=== PATIENT | female | born 1985 | race Caucasian/White ===

== ENCOUNTER 2017-12-22 13:05 | Observation (INO) ==
[2017-12-22 14:06] LABS: Bilirubin,Urine Negative (Negative); Blood,Urine Negative (Negative); Clarity,Urine Clear (Clear); Color,Urine Yellow (Yellow); Glucose,Urine (UA) Normal (Normal); Ketones,Urine Negative (Negative); Leukocyte Esterase,Urine Negative (Negative); Nitrite,Urine Negative (Negative); Protein,Urine Negative (Neg-Trace); Specific Gravity,Urine 1.014 (1.010-1.025); Urobilinogen,Urine Normal (Normal)
[2017-12-22 14:11] LABS: Basophils # 0.1 K/mcL (0.0-0.2); Basophils % 0.4 %; Eosinophils # 0.1 K/mcL (0.0-0.6); Eosinophils % 0.5 %; Hematocrit 45.3 % (35.3-44.9); Hemoglobin 14.5 g/dL (11.5-15.4); Immature Granulocytes % 1.6 % (0-4); Lymphocytes # 2.5 K/mcL (0.6-4.6); Lymphocytes % 10.5 %; Mean Corpuscular Hemoglobin 29.8 pg (28.0-33.3); Mean Platelet Volume 9.2 fL (9.4-12.4); Monocytes # 1.3 K/mcL (0.0-1.3); Monocytes % 5.4 %; Neutrophils # 19.3 K/mcL (1.6-8.9); Platelet Count 417 K/mcL (140-400); Red Blood Count 4.87 M/mcL (3.82-4.97); Red Cell Distribution Width 15.7 % (11.5-14.5); Segmented Neutrophils % 81.6 %
[2017-12-22 14:18] LABS: Prothrombin Time 10.6 Seconds (9.4-12.1)
[2017-12-22 14:21] LABS: Activated Partial Thrombo Time 28.9 Seconds (26.0-36.0)
--- NOTE | 2017-12-22 14:25 | Emergency Department Note ---
Disposition Clinical Impression: Neurosensory deficit, Hemiparaplegic syndrome, Paresthesia and pain of both upper extremities Disposition: Admitted As Inpatient Condition: Fair Referrals: Emi Rajan CNP [Primary Care Provider] - Time of Disposition: 15:22 Neuro HPI - General Chief Complaint: ED Neuro Symptoms/Deficit Stated Complaint: "R leg numbness,tingling in fingers/face" Time Seen by Provider: 12/22/17 13:47 Source: patient Mode of arrival: wheelchair Limitations: no limitations Nursing Notes Reviewed: Yes Vital Signs Reviewed: Yes - History of Present Illness HPI Narrative: 32-year-old female history of [place]'s disease, mitral valve prolapse, patent foramen ovale, anxiety and depression, hypertension, symptomatic atrial tachycardia, who presents with an episode of right-sided weakness in her right lower extremity as well as her upper extremity. This occurred concurrently, patient had symptoms started yesterday in the morning when she was just sitting at home. She is unable to walk the right leg she had a CT scan done at [facility] was negative was discharged but was unable to ambulate since then. The patient is still not able to walk or lift or move the right leg, she feels no sensation pain or temperature to the right leg. The patient states that she has no neck pain no stiffness of her neck no recent trauma to her neck or back. She is no blurry vision or diplopia no slurred speech. She has no history of strokes is not anticoagulated. Patient denies any chest pain or abdominal pain. Patient states that she also has tingling in her bilateral upper extremity's in her face. Just feels subjective tingling and paresthesias she is noticing her parents his left lower extremity. And full motor strength for upper extremities bilaterally and her left leg. She did have a recent diarrheal illness and took some antibiotics for about a month ago where she was having diarrhea and nausea vomiting no recent travel or sick exposures no recent bites by bugs. No recent tick bite Onset of Symptoms Date: 12/21/17 Onset of Symptoms Time: 10:00 Symptom Onset Unknown: Yes Timing confirmed by: spouse Location: speech History of same: No Severity: moderate Quality: weakness, numbness, tingling Symptoms Improving: Yes Improves with: none Worsens with: none On Anticoagulants: No Associated symptoms: Reports: weakness. Denies: confusion, chest pain, cough, diaphoresis, fever/chills, headaches, loss of appetite, malaise, nausea/vomiting Treatments Prior to Arrival: none - Related Data Home Medications: Home Medications Medication Instructions Recorded Confirmed Gabapentin [Neurontin] 800 mg PO TID 12/22/17 12/22/17 Ibuprofen [Ibuprofen] 800 mg PO TID 12/22/17 12/22/17 Metoprolol Succinate [Toprol Xl] 25 mg PO DAILY 12/22/17 12/22/17 Minocycline [Minocin] 50 mg PO DAILY 12/22/17 12/22/17 Omeprazole [PriLOSEC] 20 mg PO DAILY 12/22/17 12/22/17 Topiramate [Topamax] 25 mg PO TID 12/22/17 12/22/17 Triamterene/HCTZ 37.5/25mg 1 each PO DAILY 12/22/17 12/22/17 [Dyazide] Zolpidem [Ambien] 10 mg PO HS 12/22/17 12/22/17 clonazePAM [Klonopin] 1 mg PO TID 12/22/17 12/22/17 predniSONE [PredniSONE] 25 mg PO DAILY 12/22/17 12/22/17 raNITIdine HCl [Ranitidine HCl] 300 mg PO DAILY 12/22/17 12/22/17 Allergies/Adverse Reactions: Allergies Allergy/AdvReac Type Severity Reaction Status Date / Time dextromethorphan Allergy Seizure Verified 12/22/17 16:01 [From Capmist DM] guaifenesin [From Capmist DM] Allergy Seizure Verified 12/22/17 16:01 latex Allergy Rash Verified 12/22/17 16:01 morphine Allergy Hives Verified 12/22/17 16:01 pseudoephedrine Allergy Seizure Verified 12/22/17 16:01 [From Capmist DM] magnesium sulfate Allergy Palpitation Uncoded 12/22/17 16:01 s All systems ED: reviewed and negative except as stated. Review of Systems: As Per HPI Constitutional: Reports: as per HPI, weakness. Denies: fever, chills Eyes: Denies: eye pain ENT ED: Denies: ear pain Cardiovascular: Denies: chest pain, palpitations Respiratory: Denies: cough, dyspnea Gastrointestinal: Denies: abdominal pain Genitourinary: Denies: urgency, dysuria Musculoskeletal: Denies: back pain, neck pain, joint swelling Integumentary: Denies: rash Neurological: Reports: as per HPI, weakness, paresthesias. Denies: headache, abnormal gait Psychiatric: Denies: anxiety, depression, suicidal thoughts Endocrine: Denies: fatigue Past Medical History - Past Medical History Attestation: Yes The following information was validated with the patient. Source: patient Medical history: Reports: cancer, seizures Psychiatric history: Reports: depression - Social History Smoking Status: Current every day smoker Alcohol use: Reports: none Drug use: Reports: none Physical Exam Constitutional: NAD, vital signs reviewed and wnl Eyes: PERRLA, sclera anicteric ENT & Mouth: MMM Neck: normal inspection, neck is supple Resp: CTA bilaterally, no resp distress CV: RRR, no m/g/r GI: normal inspection, soft, no guarding or rigidity Neuro: A&O3, CNII-XII grossly intact, 0 out of 5 muscle strength of the right lower extremity, decreased sensation in the right lower extremity from the ankle to the thigh. Patient with 5 out of 5 muscle strength in the left lower extremity bilateral upper extremities. Patient subjective sensory deficit "feels numb" to the left and right face left and right arms bilaterally patient with +2 out of 4 DTRs bilateral lower extremity patella no clonus at the ankle. Skin: on limited exam, skin intact with no rashes or lesions - General Limitations: no limitations General appearance: alert, in no apparent distress Course Course Narrative: 32-year-old female with mixed neurologic complaints that are somewhat myotic spine by peripheral or central distribution, right sided marianne-paraplegia the patient will get a basic lab work and CT scan of the low back but no tenderness , no indication for lumbar puncture at this time as she is afebrile and normotensive she has chronic steroid use basic lab work CBC BMP x-ray CT of the back ordered. The patient also has onset greater than 24 hours ago and recent negative CT scan so indication for head MRI not a CT scan repeated and the patient is not in the candidate for TPA if this was possibly stroke. - Reevaluation(s) Reevaluation #1: Admitted to Dr Burns - Consultations Consultation #1: I spoke with Dr. Patel the neurologist and one over the labs and imaging at this time the patient is seemed dynamically stable afebrile no acute distress with no neck stiffness or nuchal rigidity, the neurologist agrees with no indication for lumbar puncture at this time but thinks that the patient will need MRI imaging of the head CT and L-spine likely to evaluate for other etiologies he suspects a central etiology versus functional given that she is having a paraplegic to the right leg. Plan is for admission the hospitalist service Time: 15:32 Consultation #2: Neuro saw patient at bedside, recs UDS as well, and agrees with plan for admission and imaging MRI Head C/T/L Time: 16:55 Vital Signs Temperature 98.2 F 12/22/17 13:29 Pulse Rate 112 12/22/17 13:29 Respiratory Rate 14 12/22/17 13:29 Blood Pressure 118/86 12/22/17 13:29 O2 Sat by Pulse Oximetry 97 12/22/17 13:29 Temperature 98.2 F 12/22/17 13:55 Pulse Rate 112 12/22/17 13:55 Respiratory Rate 14 12/22/17 13:55 Blood Pressure 118/86 12/22/17 13:55 O2 Sat by Pulse Oximetry 97 12/22/17 13:55 Oxygen Delivery Oxygen Delivery Room Air Neuro Symptoms/Deficit - Differential Diagnosis Likely: cerebrovascular accident, transient cerebral ischemia, convulsions - Medical Records Medical records reviewed: Yes I reviewed the patient's medical records. - Lab Data Lab results reviewed: Yes I reviewed the patient's lab results. Result diagrams: 12/22/17 13:55 12/22/17 13:55 Lab Results 12/22/17 12/22/17 12/22/17 Range/Units 13:35 13:35 13:55 WBC 23.6 H (4.3-11.1) K/mcL RBC 4.87 (3.82-4.97) M/mcL Hgb 14.5 (11.5-15.4) g/dL Hct 45.3 H (35.3-44.9) % MCV 93.0 (83.0-100.0) fL MCH 29.8 (28.0-33.3) pg MCHC 32.0 (31.6-35.5) g/dL RDW 15.7 H (11.5-14.5) % Plt Count 417 H (140-400) K/mcL MPV 9.2 L (9.4-12.4) fL Immature Gran % 1.6 (0-4) % Seg Neutrophils % 81.6 % Lymphocytes % 10.5 % Monocytes % 5.4 % Eosinophils % 0.5 % Basophils % 0.4 % Neutrophils # 19.3 H (1.6-8.9) K/mcL Lymphocytes # 2.5 (0.6-4.6) K/mcL Monocytes # 1.3 (0.0-1.3) K/mcL Eosinophils # 0.1 (0.0-0.6) K/mcL Basophils # 0.1 (0.0-0.2) K/mcL PT (9.4-12.1) Seconds INR APTT (26.0-36.0) Seconds Sodium (136-145) mEq/L Potassium (3.5-5.1) mEq/L Chloride (98-107) mEq/L Carbon Dioxide (23-29) mEq/L BUN (6-20) mg/dL Creatinine (0.60-1.20) mg/dL Est GFR ( Amer) (> 60) Est GFR (Non-Af Amer) (> 60) BUN/Creatinine Ratio (6-26) Glucose (70-105) mg/dL Calculated Osmolality (280-300) Calcium (8.6-10.3) mg/dL Magnesium (1.6-2.6) mg/dL Troponin I (< 0.04) ng/mL TSH (0.340-5.600) mcIU/mL Urine Color Yellow (Yellow) Urine Clarity Clear (Clear) Urine pH 6.0 (5.0-8.0) pH Units Ur Specific [place] 1.014 (1.010-1.025) Urine Protein Negative (Neg-Trace) mg/dL Urine Glucose (UA) Normal (Normal) mg/dL Urine Ketones Negative (Negative) mg/dL Urine Blood Negative (Negative) Urine Nitrite Negative (Negative) Urine Bilirubin Negative (Negative) Urine Urobilinogen Normal (Normal) mg/dL Ur Leukocyte Esterase Negative (Negative) Ur Culture Indicated? NO (NO) Urine Test Negative (Negative) 12/22/17 12/22/17 12/22/17 Range/Units 13:55 13:55 13:55 WBC (4.3-11.1) K/mcL RBC (3.82-4.97) M/mcL Hgb (11.5-15.4) g/dL Hct (35.3-44.9) % MCV (83.0-100.0) fL MCH (28.0-33.3) pg MCHC (31.6-35.5) g/dL RDW (11.5-14.5) % Plt Count (140-400) K/mcL MPV (9.4-12.4) fL Immature Gran % (0-4) % Seg Neutrophils % % Lymphocytes % % Monocytes % % Eosinophils % % Basophils % % Neutrophils # (1.6-8.9) K/mcL Lymphocytes # (0.6-4.6) K/mcL Monocytes # (0.0-1.3) K/mcL Eosinophils # (0.0-0.6) K/mcL Basophils # (0.0-0.2) K/mcL PT 10.6 (9.4-12.1) Seconds INR 1.0 APTT 28.9 (26.0-36.0) Seconds Sodium 138 (136-145) mEq/L Potassium 3.3 L (3.5-5.1) mEq/L Chloride 107 (98-107) mEq/L Carbon Dioxide 20 L (23-29) mEq/L BUN 7 (6-20) mg/dL Creatinine 0.84 (0.60-1.20) mg/dL Est GFR ( Amer) > 60 (> 60) Est GFR (Non-Af Amer) > 60 (> 60) BUN/Creatinine Ratio 8 (6-26) Glucose 96 (70-105) mg/dL Calculated Osmolality 284 (280-300) Calcium 8.7 (8.6-10.3) mg/dL Magnesium 2.0 (1.6-2.6) mg/dL Troponin I < 0.03 (< 0.04) ng/mL TSH 1.118 (0.340-5.600) mcIU/mL Urine Color (Yellow) Urine Clarity (Clear) Urine pH (5.0-8.0) pH Units Ur Specific [place] (1.010-1.025) Urine Protein (Neg-Trace) mg/dL Urine Glucose (UA) (Normal) mg/dL Urine Ketones (Negative) mg/dL Urine Blood (Negative) Urine Nitrite (Negative) Urine Bilirubin (Negative) Urine Urobilinogen (Normal) mg/dL Ur Leukocyte Esterase (Negative) Ur Culture Indicated? (NO) Urine Test (Negative) - Radiology Data Radiology results reviewed: Yes I reviewed the patient's radiology results. Lumbar Spine CT 12/22/17 14:06 IMPRESSION: No acute fracture or subluxation. D/ / Lalo Camejo MD / Lalo Camejo MD Interpreting Provider: Lalo Camejo MD - EKG Data EKG attestation: Yes I reviewed and interpreted this EKG. EKG shows normal: sinus rhythm Rate: tachycardia Rhythm: NSR (100 beats for minute DC 157 QRS 93 QTc [address] segment elevations, left axis, inversions in lead 3 and aVR. left atrial enlargement) TPA Checklist - LKW: 3-4.5 hrs Add. Warnings/Precautions Patient/family understanding: The patient/family members have been counseled and understood the risk, benefit , and alternatives of treatment. Attestation Statement - Attestation Attestation: I, Reyes Maher DO, examined this patient [id number] and my medical decision-making was reviewed with Dr. Dagoberto Justin, Resident Physician. I agree with the documented findings, disposition and treatment plan as described except to the extent set forth below. Please see my progress notes for details.
[2017-12-22 14:30] LABS: BUN/Creatinine Ratio 8 (6-26); Blood Urea Nitrogen 7 mg/dL (6-20); Calcium 8.7 mg/dL (8.6-10.3); Carbon Dioxide 20 mEq/L (23-29); Chloride 107 mEq/L (98-107); Glucose 96 mg/dL (70-105); Osmolality,Calculated 284 (280-300); Potassium 3.3 mEq/L (3.5-5.1); Sodium 138 mEq/L (136-145); Troponin I < 0.03 ng/mL (< 0.04); eGFR For African Americans > 60 (> 60); eGFR For Non-African Americans > 60 (> 60)
[2017-12-22 14:43] LABS: Thyroid Stimulating Hormone 1.118 mcIU/mL (0.340-5.600)
[2017-12-22] MEDS ORDERED: 0.9 % Sodium Chloride 1,000 ML IVC ONE (15:02)
--- NOTE | 2017-12-22 15:27 | Emergency Department Note ---
Disposition Clinical Impression: Neurosensory deficit, Hemiparaplegic syndrome, Paresthesia and pain of both upper extremities Disposition: Admitted As Inpatient Condition: Good Referrals: Emi Rajan CNP [Primary Care Provider] - Forms: ED Satisfaction Letter Time of Disposition: 15:55 General Adult HPI - General Chief complaint: ED Neuro Symptoms/Deficit Stated complaint: "R leg numbness,tingling in fingers/face" Time Seen by Provider: 12/22/17 13:47 Source: patient Limitations: no limitations - History of Present Illness Pain Scale: 7 - Related Data Allergies Allergy/AdvReac Type Severity Reaction Status Date / Time latex Allergy Rash Verified 12/25/15 12:38 morphine Allergy Hives Verified 12/25/15 12:38 magnesium sulfate Allergy Palpitation Uncoded 12/25/15 12:38 s Past Medical History - Past Medical History Medical history: Reports: cancer, seizures Psychiatric history: Reports: depression - Social History Smoking Status: Current every day smoker Alcohol use: Reports: none Drug use: Reports: none Physical Exam - General Limitations: no limitations General appearance: alert, in no apparent distress Course Vital Signs Temperature 98.2 F 12/22/17 13:29 Pulse Rate 112 12/22/17 13:29 Respiratory Rate 14 12/22/17 13:29 Blood Pressure 118/86 12/22/17 13:29 O2 Sat by Pulse Oximetry 97 12/22/17 13:29 Temperature 98.2 F 12/22/17 13:55 Pulse Rate 112 12/22/17 13:55 Respiratory Rate 14 12/22/17 13:55 Blood Pressure 118/86 12/22/17 13:55 O2 Sat by Pulse Oximetry 97 12/22/17 13:55 Oxygen Delivery Oxygen Delivery Room Air Medical Decision Making - Lab Data Result diagrams: 12/22/17 13:55 12/22/17 13:55 Lab Results 12/22/17 12/22/17 12/22/17 Range/Units 13:35 13:35 13:55 WBC 23.6 H (4.3-11.1) K/mcL RBC 4.87 (3.82-4.97) M/mcL Hgb 14.5 (11.5-15.4) g/dL Hct 45.3 H (35.3-44.9) % MCV 93.0 (83.0-100.0) fL MCH 29.8 (28.0-33.3) pg MCHC 32.0 (31.6-35.5) g/dL RDW 15.7 H (11.5-14.5) % Plt Count 417 H (140-400) K/mcL MPV 9.2 L (9.4-12.4) fL Immature Gran % 1.6 (0-4) % Seg Neutrophils % 81.6 % Lymphocytes % 10.5 % Monocytes % 5.4 % Eosinophils % 0.5 % Basophils % 0.4 % Neutrophils # 19.3 H (1.6-8.9) K/mcL Lymphocytes # 2.5 (0.6-4.6) K/mcL Monocytes # 1.3 (0.0-1.3) K/mcL Eosinophils # 0.1 (0.0-0.6) K/mcL Basophils # 0.1 (0.0-0.2) K/mcL PT (9.4-12.1) Seconds INR APTT (26.0-36.0) Seconds Sodium (136-145) mEq/L Potassium (3.5-5.1) mEq/L Chloride (98-107) mEq/L Carbon Dioxide (23-29) mEq/L BUN (6-20) mg/dL Creatinine (0.60-1.20) mg/dL Est GFR ( Amer) (> 60) Est GFR (Non-Af Amer) (> 60) BUN/Creatinine Ratio (6-26) Glucose (70-105) mg/dL Calculated Osmolality (280-300) Calcium (8.6-10.3) mg/dL Magnesium (1.6-2.6) mg/dL Troponin I (< 0.04) ng/mL TSH (0.340-5.600) mcIU/mL Urine Color Yellow (Yellow) Urine Clarity Clear (Clear) Urine pH 6.0 (5.0-8.0) pH Units Ur Specific [place] 1.014 (1.010-1.025) Urine Protein Negative (Neg-Trace) mg/dL Urine Glucose (UA) Normal (Normal) mg/dL Urine Ketones Negative (Negative) mg/dL Urine Blood Negative (Negative) Urine Nitrite Negative (Negative) Urine Bilirubin Negative (Negative) Urine Urobilinogen Normal (Normal) mg/dL Ur Leukocyte Esterase Negative (Negative) Ur Culture Indicated? NO (NO) Urine Test Negative (Negative) 12/22/17 12/22/17 12/22/17 Range/Units 13:55 13:55 13:55 WBC (4.3-11.1) K/mcL RBC (3.82-4.97) M/mcL Hgb (11.5-15.4) g/dL Hct (35.3-44.9) % MCV (83.0-100.0) fL MCH (28.0-33.3) pg MCHC (31.6-35.5) g/dL RDW (11.5-14.5) % Plt Count (140-400) K/mcL MPV (9.4-12.4) fL Immature Gran % (0-4) % Seg Neutrophils % % Lymphocytes % % Monocytes % % Eosinophils % % Basophils % % Neutrophils # (1.6-8.9) K/mcL Lymphocytes # (0.6-4.6) K/mcL Monocytes # (0.0-1.3) K/mcL Eosinophils # (0.0-0.6) K/mcL Basophils # (0.0-0.2) K/mcL PT 10.6 (9.4-12.1) Seconds INR 1.0 APTT 28.9 (26.0-36.0) Seconds Sodium 138 (136-145) mEq/L Potassium 3.3 L (3.5-5.1) mEq/L Chloride 107 (98-107) mEq/L Carbon Dioxide 20 L (23-29) mEq/L BUN 7 (6-20) mg/dL Creatinine 0.84 (0.60-1.20) mg/dL Est GFR ( Amer) > 60 (> 60) Est GFR (Non-Af Amer) > 60 (> 60) BUN/Creatinine Ratio 8 (6-26) Glucose 96 (70-105) mg/dL Calculated Osmolality 284 (280-300) Calcium 8.7 (8.6-10.3) mg/dL Magnesium 2.0 (1.6-2.6) mg/dL Troponin I < 0.03 (< 0.04) ng/mL TSH 1.118 (0.340-5.600) mcIU/mL Urine Color (Yellow) Urine Clarity (Clear) Urine pH (5.0-8.0) pH Units Ur Specific [place] (1.010-1.025) Urine Protein (Neg-Trace) mg/dL Urine Glucose (UA) (Normal) mg/dL Urine Ketones (Negative) mg/dL Urine Blood (Negative) Urine Nitrite (Negative) Urine Bilirubin (Negative) Urine Urobilinogen (Normal) mg/dL Ur Leukocyte Esterase (Negative) Ur Culture Indicated? (NO) Urine Test (Negative) Attestation Statement - Attestation Attestation: I, Reyes Maher DO, examined this patient [id number] and my medical decision-making was reviewed with Dr. Dagoberto Justin, Resident Physician. I agree with the documented findings, disposition and treatment plan as described except to the extent set forth below. Please see my progress notes for details. 32-year-old female presents to the emergency room for evaluation of bilateral upper extremity tingling sensation in his fingers as well as right lower extremity paresthesias and what she describes as paralysis. Patient denies any recent trauma or injury. She does not history of anxiety and panic attacks along with [place]'s disease. She is chronically on steroids. She was seen and evaluated and treated at outside facility yesterday where she was told that she possibly needed an MRI but was not admitted at that point. Patient denies any progression of the symptoms over the last 24 hours. She has been unable to walk secondary to the weakness in her right leg. Otherwise the patient is clinically stable. Patient is denying chest pain shortness of breath headache vision changes nausea vomiting or diarrhea. Denies any fevers or chills. Denies any new medications or changes in her medication regimen at this time. Patient does not have any history of strokes or bleeding disorder or clotting disorder. Vital signs are reviewed and are stable. Physical exam shows a well- appearing female in no apparent distress she does have slightly elevated heart rate on initial evaluation of fluctuates from 105 down to 90. Oropharynx is patent trachea is midline are symmetric presentation to the Soft palate the mouth. She has full range of motion the neck with normal sensation. Cranial nerves II through XII are grossly intact. Lungs are clear heart is regular abdomen is soft. Patient has no signs of weakness in the upper extremity she has no significant paresthesias, muscle weakness or abnormality at this time. Patient does describe complete paralysis and paresthesia to the right lower extremity from just distal to the right hip joint. She does have sensation and tingling presentation in the groin of the right hip but otherwise the remainder of the leg does not have any sensation at this time. Deep tendon reflexes are intact in the patellar and Achilles distributions bilaterally. They are symmetrical. Patient has normal pulses in the DP and PT distributions bilaterally. Etiology to the presentation is difficult to differentiate at this time. Screening CT imaging of the head along with electrolytes labs urinalysis and test will be resulted at this time. Disposition to be determined once the full workup and consultations are completed. Otherwise patient is clinically stable. See detailed documentation of the physical exam, medical intervention, medical decision- making and disposition in the resident physician's note. No critical care provider the patient's treatment course at this time. 1525 Patient has stable workup at this point. Bedside, significantly elevated but his foot. Conjunction with her chronic steroid use. She has no infectious etiology this time. The concern for neurologic issues including GBS, myasthenia gravis, MS, ALS, other neurologic pathology were discussed and reviewed with the on-call neurologist Dr. Patel. He agrees this is difficult to differentiate it does not fit any specific pathology recommended admission at this time. We will admit the patient to the hospitalist group for further imaging modalities and continuation of care. No other acute intervention is required at this point. Hospitals patient will be admission process at this time. 1545 Hospitals contacted. Detailed review the presentation symptoms were discussed. This is also informed of the neurology evaluation. No other concerns or issues noted. Admission process to be completed this time. Patient will be observed in emergency room until admission process is completed
--- NOTE | 2017-12-22 16:47 | Neurology - Consult Note ---
Date of Encounter: 12/22/17 Time of Encounter: 16:45 Assessment and Plan (1) Neurosensory deficit Current Visit: Yes Status: Acute It is my suspicion that we are dealing with conversion reaction. The deficits that she presents with do not align with conventional understanding of the principles of neuroanatomy in neurophysiology. I would not expect her to have such a dense weakness of the right leg with anesthesia of the right leg and preservation of reflexes in the right leg. This is incompatible with a lower motor neuron lesion. It is also not likely that an upper motor neuron lesion could produce such a dense weakness of one extremity without some measure involvement of the other extremity on the same side. She has absolutely no weakness or sensory deficit of the right arm. Facial paresthesias particularly perioral paresthesias along with paresthesias of the hands are commonly encountered in anxiety reactions. Given all the above along with a prior history of psychogenic nonepileptic seizures also supports that a primary neurologic etiology for this is not likely. This is not likely to be Guillain- Goshen syndrome, transverse myelitis or multiple sclerosis. We will however obtain MRI scans of the brain and cervical and thoracic spine. I do not feel that lumbar puncture is necessary. History of Present Illness HPI: The chart was reviewed, the patient was seen and examined at the bedside. Ms. Roque is a 32 year old female who is being seen for neurologic evaluation secondary to paresthesias involving the face. Oral paresthesias, as well as right leg weakness. She informs me that this morning when she woke up she "did not feel well" as best he can recall the paresthesias started somewhere around 12:00 noon. She first noticed paresthesias of the hands and then around the mouth. She initially felt numbness of both feet. She states that now she can feel her left leg however cannot feel or move her right leg. Generally sensation she has in the right leg is up around the hip region. Otherwise she complains of complete anesthesia in total weakness of the right leg. She denies pain associated. She informs me that she also has a history of "stress-induced seizures" apparently she was diagnosed with this at [facility]. However she does have a neurologist in [place] associated with Amanda who is currently assuming her care for this. Apparently she has had an EEG and will be getting a prolonged EEG. I will not be addressing this issue during this hospitalization. Currently she is awake and alert and is otherwise remarkably well composed considering the fact that she is completely unable to use her right leg. Past Med Surg Social Fam HX - Past Medical History Medical history: cancer, seizures Additional medical history: PFO,Mitral valve proplapse, isaias's Psychiatric history: depression - Social History Smoking Status: Current every day smoker Alcohol use: none Drug use: none Medications and Allergies Gabapentin [Neurontin] 800 mg PO TID 12/22/17 [History] Ibuprofen [Ibuprofen] 800 mg PO TID 12/22/17 [History] Metoprolol Succinate [Toprol Xl] 25 mg PO DAILY 12/22/17 [History] Minocycline [Minocin] 50 mg PO DAILY 12/22/17 [History] Omeprazole [PriLOSEC] 20 mg PO DAILY 12/22/17 [History] Topiramate [Topamax] 25 mg PO TID 12/22/17 [History] Triamterene/HCTZ 37.5/25mg [Dyazide] 1 each PO DAILY 12/22/17 [History] Zolpidem [Ambien] 10 mg PO HS 12/22/17 [History] clonazePAM [Klonopin] 1 mg PO TID 12/22/17 [History] predniSONE [PredniSONE] 25 mg PO DAILY 12/22/17 [History] raNITIdine HCl [Ranitidine HCl] 300 mg PO DAILY 12/22/17 [History] 3 Allergy/AdvReac Type Severity Reaction Status Date / Time dextromethorphan Allergy Seizure Verified 12/22/17 16:01 [From Capmist DM] guaifenesin [From Capmist DM] Allergy Seizure Verified 12/22/17 16:01 latex Allergy Rash Verified 12/22/17 16:01 morphine Allergy Hives Verified 12/22/17 16:01 pseudoephedrine Allergy Seizure Verified 12/22/17 16:01 [From Capmist DM] magnesium sulfate Allergy Palpitation Uncoded 12/22/17 16:01 s All Systems: The remainder of the systems were reviewed and are negative Review of Systems: The balance of the systems review is negative. Physical Examination - Vital Signs Vital Signs: Initial Vital Signs Temp Pulse Resp BP Pulse Ox 98.2 F 112 14 118/86 97 12/22/17 13:29 12/22/17 13:29 12/22/17 13:29 12/22/17 13:29 12/22/17 13:29 - Constitutional General appearance: comfortable - Neurologic Sensorimotor examination: other (There is complete anesthesia of the right leg save an area in the right hip and groin region. She has no proprioception in the right foot and the great toe area. Has no temperature sensation in the right foot or leg.) Detailed motor examination: other (She has normal strength bulk and tone of both upper extremities as well as the left lower extremity. No involuntary movements or atrophy are present.) Motor examination - right side: 5/5: deltoids, biceps, triceps, wrist flexion, wrist extension, operator catalyst concentration Motor examination - left side: 5/5: deltoids, biceps, triceps, wrist flexion, wrist extension, hip flexors, operator catalyst concentration, quadriceps, tibialis Anterior, toe extension (EHL), plantarflexion Detailed sensory examination: other (Patient has normal sensation of the face, has paresthesias of the hands symmetrically. Has normal sensation of the arms down to the wrist. She has complete anesthesia of the right leg with exception of the right hip. She has normal sensation of the left leg.) Reflex and gait examination: other (Deep tendon reflexes are normal throughout this includes the biceps, triceps, brachial radialis, patellar, and Achilles symmetrically. No clonus or Babinski at present.) Mental Status Examination: awake, alert, oriented to person, oriented to place, oriented to time, follows commands appropriately, answers questions appropriately, no agnosia, no aphasia, no aproxia Cranial nerve examination: PERRL, EOMI, visual kramer intact, corneal reflexes brisk symmetrically, sensory to face intact, mastication intact, no facial asymmetry is present, no dysarthria, hearing is intact symmetrically, soft palate elevates bilaterally upon phonation, gag reflex intact, flexes SCM and trapezius muscles symmetrically with full power, tongue protrudes midline, no atrophy or facial fasiculations present Cerebellar examination: no dysmetria, no truncal ataxia Results - Laboratory Findings CBC and BMP: 12/22/17 13:55 12/22/17 13:55 Abnormal lab findings: Abnormal lab results WBC 23.6 K/mcL (4.3-11.1) H 12/22/17 13:55 Hct 45.3 % (35.3-44.9) H 12/22/17 13:55 RDW 15.7 % (11.5-14.5) H 12/22/17 13:55 Plt Count 417 K/mcL (140-400) H 12/22/17 13:55 MPV 9.2 fL (9.4-12.4) L 12/22/17 13:55 Neutrophils # 19.3 K/mcL (1.6-8.9) H 12/22/17 13:55 Potassium 3.3 mEq/L (3.5-5.1) L 12/22/17 13:55 Carbon Dioxide 20 mEq/L (23-29) L 12/22/17 13:55 Consult Discharge Plan - Plan Referrals: Emi Rajan, DIRK [Primary Care Provider] -
[2017-12-22 17:11] LABS: Amphetamine Screen,Urine Negative ng/mL (Cutoff=1000); Barbiturate Screen,Urine Negative ng/mL (Cutoff=200); Benzodiazepines Screen,Urine Negative ng/mL (Cutoff=200); Cannabinoid Screen,Urine Negative ng/mL (Cutoff = 50); Cocaine Screen,Urine Negative ng/mL (Cutoff= 300); Opiate Screen,Urine Negative ng/mL (Cutoff=300); Phencyclidine Screen,Urine Negative ng/mL (Cutoff=25)
[2017-12-22] MEDS ORDERED: Acetaminophen 325 MG TABLET PO PRN (17:18)
[2017-12-22] MEDS ORDERED: Naloxone 0.4 MG/ML INJ IVP PRN (17:18)
--- NOTE | 2017-12-22 17:24 | Internal Med History&Physical ---
Date of Encounter: 12/22/17 Time of Encounter: 17:22 Internal Medicine - H&P: HPI Chief complaint: Right lower extremity weakness Admitted From: Emergency Dept History of present illness: Ms. Roque is a 32 year old female with a past medical history of Kalen's, mitral valve prolapse, P a follow, seizure disorder who came to emergency room complaining of right lower extremity weakness accompanied by Lovenox since DVT and tingling that started at noon. She was seen at [facility] yesterday and discharged home after having a normal apparent CT scan of the lumbar spine. Patient says that her symptoms started with tingling on both hands, nose and mouth yesterday then she lost sensitivity on the right leg which became weak, she is completely unable to move that limb. Says that she had diarrhea month ago and was treated with antibiotics. White blood cell count is 23.6 but has been always elevated. Platelets are [address] scan of the lumbar spine did not show any abnormality, patient was evaluated by neurology and MRIs were recommended, no lumbar puncture for now. Heart rate was 112 that she has history of atrial tachycardia. Denies any other symptoms Past Med Surg Social Fam HX - Past Medical History Medical history: cancer (Cervical cancer), seizures, other (Kalen's, mitral valve prolapse, PFO, anxiety, depression, hypertension, seizure disorder, atrial tachycardia, tobacco) Additional medical history: PFO,Mitral valve proplapse, kalen's Psychiatric history: depression - Past Surgical History Surgical History: other (Hysterectomy, oophorectomy, tonsillectomy, ear tubes) - Social History Smoking Status: Current every day smoker Packs per day: 1 Alcohol use: none Drug use: none - Additional Family History Additional family history: Mother with endometriosis and basal cell carcinoma of the skin Internal Medicine - H&P: Meds Gabapentin [Neurontin] 800 mg PO TID 12/22/17 [History] Ibuprofen [Ibuprofen] 800 mg PO TID 12/22/17 [History] Metoprolol Succinate [Toprol Xl] 25 mg PO DAILY 12/22/17 [History] Minocycline [Minocin] 50 mg PO DAILY 12/22/17 [History] Omeprazole [PriLOSEC] 20 mg PO DAILY 12/22/17 [History] Topiramate [Topamax] 25 mg PO TID 12/22/17 [History] Triamterene/HCTZ 37.5/25mg [Dyazide] 1 each PO DAILY 12/22/17 [History] Zolpidem [Ambien] 10 mg PO HS 12/22/17 [History] clonazePAM [Klonopin] 1 mg PO TID 12/22/17 [History] predniSONE [PredniSONE] 25 mg PO DAILY 12/22/17 [History] raNITIdine HCl [Ranitidine HCl] 300 mg PO DAILY 12/22/17 [History] 3 Allergy/AdvReac Type Severity Reaction Status Date / Time dextromethorphan Allergy Seizure Verified 12/22/17 16:01 [From Capmist DM] guaifenesin [From Capmist DM] Allergy Seizure Verified 12/22/17 16:01 latex Allergy Rash Verified 12/22/17 16:01 morphine Allergy Hives Verified 12/22/17 16:01 pseudoephedrine Allergy Seizure Verified 12/22/17 16:01 [From Capmist DM] magnesium sulfate Allergy Palpitation Uncoded 12/22/17 16:01 s All Systems PM: A 10-system review of systems was performed and is negative for pertinent findings except as documented above in the HPI. Review of systems: Feels weak, other systems out of the 10 reviewed were negative - Constitutional Vitals: Temp Pulse Resp BP Pulse Ox 98.2 F 112 14 118/86 97 12/22/17 13:55 12/22/17 13:55 12/22/17 13:55 12/22/17 13:55 12/22/17 13:55 General appearance: Present: A&O X 3 - Head Head exam: Present: atraumatic, normocephalic - Eye Eye exam: Present: PERRL, conjuntiva pink, sclera anicteric Pupils: Present: PERRL - Neck Neck exam general surgery: Present: supple, trachea midline. Absent: lymphadenopathy - Respiratory Respiratory exam: Present: CTAB. Absent: accessory muscle use, rales, rhonchi, wheezes - Cardiovascular Cardiovascular exam: Present: RRR, +S1, +S2. Absent: diastolic murmur, gallop, rubs, systolic murmur - GI/Abdominal GI/Abdominal exam: Present: normal bowel sounds, soft, no peritoneal signs. Absent: distended, tenderness - Extremities Exam Extremities exam: Present: warm, radial pulses palpable and symmetrical. Absent : calf tenderness, cyanotic, pedal edema - Neurological Exam Neurological exam: Present: CN II-XII intact, oriented X3. Absent: no focal deficits, pronater drift, facial droop, speech deficit Additional comments: Complete loss of sensitivity and strength in the right lower extremity although reflexes are normal in both lower extremities - Skin Skin exam: Present: dry, intact Internal Med - H&P Results - Labs CBC & Chem 7: 12/22/17 13:55 12/22/17 13:55 - Assessment and plan (1) Neurosensory deficit Current Visit: Yes Status: Acute Assessment and plan: Unclear etiology, possible conversion reaction according to neurology Neuro checks, fall precautions MRI of the brain and spine Neurology will follow the case Omeprazole for GI prophylaxis and subcutaneous tennis heparin for DVT prophylaxis. The patient will be admitted for observation. Full code. Time spent on this admission 40 minutes (2) [place]'s disease Current Visit: Yes Status: Acute Assessment and plan: Continue prednisone (3) Hypertension Current Visit: Yes Status: Acute Assessment and plan: Stable Qualifiers: Hypertension type: essential hypertension Qualified Code(s): I10 - Essential (primary) hypertension (4) Tobacco abuse Current Visit: Yes Status: Acute Assessment and plan: Smoking cessation counseling for 5 minutes, nicotine patch (5) Paresthesia and pain of both upper extremities Current Visit: Yes Status: Acute (6) Hypokalemia Current Visit: Yes Status: Acute Assessment and plan: Replete - Time Spent With Patient Total time spent is greater than 50% in coordination of care (as documented) at patient's floor/unit and/or counseling patient:
[2017-12-22] MEDS: Topiramate 25 MG TABLET PO SCH (21:10)
[2017-12-22] MEDS: clonazePAM 1 MG TABLET PO SCH (21:11)
[2017-12-22] MEDS: Gabapentin 400 MG CAPSULE PO SCH (21:11)
[2017-12-22] MEDS: *HR* Heparin 5,000 UNIT/ML VIAL SQ SCH ×2 (21:12→23:07)
[2017-12-22] MEDS: Nicotine 21 MG PATCH.TD24 TD SCH (21:13)
[2017-12-22] MEDS: 0.9 % Sodium Chloride 1,000 ML IVC SCH (21:15)
[2017-12-22] MEDS ORDERED: Melatonin 3 MG TABLET PO PRN (21:28)
[2017-12-23 05:02] LABS: Mean Corpuscular HGB Conc 32.6 g/dL (31.6-35.5); Mean Corpuscular Hemoglobin 30.8 pg (28.0-33.3); Mean Corpuscular Volume 94.3 fL (83.0-100.0); Mean Platelet Volume 9.3 fL (9.4-12.4); Platelet Count 341 K/mcL (140-400); Red Blood Count 4.03 M/mcL (3.82-4.97); Red Cell Distribution Width 15.8 % (11.5-14.5)
[2017-12-23 05:08] LABS: Hemoglobin 12.4 g/dL (11.5-15.4)
[2017-12-23 05:25] LABS: BUN/Creatinine Ratio 18 (6-26); Blood Urea Nitrogen 12 mg/dL (6-20); Calcium 8.1 mg/dL (8.6-10.3); Carbon Dioxide 22 mEq/L (23-29); Chloride 111 mEq/L (98-107); Glucose 87 mg/dL (70-105); Osmolality,Calculated 287 (280-300); Potassium 3.4 mEq/L (3.5-5.1); Sodium 139 mEq/L (136-145); eGFR For African Americans > 60 (> 60); eGFR For Non-African Americans > 60 (> 60)
[2017-12-23] MEDS: *HR* Heparin 5,000 UNIT/ML VIAL SQ SCH ×3 (05:43→21:32)
[2017-12-23] MEDS: Gabapentin 400 MG CAPSULE PO SCH ×3 (08:11→21:32)
[2017-12-23] MEDS: Topiramate 25 MG TABLET PO SCH ×3 (08:11→21:32)
[2017-12-23] MEDS: clonazePAM 1 MG TABLET PO SCH ×3 (08:11→21:32)
[2017-12-23] MEDS: predniSONE 10 MG TABLET PO SCH (08:11)
[2017-12-23] MEDS: Metoprolol XL (24 HR) Succ 25 MG TAB.ER.24H PO SCH (08:11)
[2017-12-23] MEDS: Nicotine 21 MG PATCH.TD24 TD SCH (08:12)
[2017-12-23] MEDS: 0.9 % Sodium Chloride 1,000 ML IVC SCH (12:25)
--- NOTE | 2017-12-23 14:20 | Neurology Progress Note ---
Date of Encounter: 12/23/17 Time of Encounter: 08:30 Assessment and Plan (1) Neurosensory deficit Current Visit: Yes Status: Acute (2) Conversion reaction Current Visit: Yes Status: Acute I am highly suspicious that we are dealing with conversion reaction. This patient's presentation is difficult to reconcile from a neurophysiologic and neural anatomic perspective. Furthermore she has a history of nonepileptic seizures where she was diagnosed at [facility]. I did get a report that she was in the shower earlier today moving both legs. I would simply recommend a CT scan of the abdomen and pelvis with and without contrast to rule out a mass sending the right lumbar plexus. If this is negative then I would be absolutely convinced that her presentation is due to underlying hysterical etiologies. Case was discussed with the hospitalist. Subjective Interval history: The chart was reviewed, the patient was seen and examined. She had an uneventful night. Her neurologic exam however has not changed. She still has complaints of numbness of both hands and inability to move the right leg. I did inform her that MRIs of her brain, cervical spine, thoracic spine, and lumbar spine were all normal. There is no evidence of a demyelinating process. Her neurologic examination remains unchanged and her reflexes remain intact. She denies any significant pain. Objective - Constitutional Vitals: Temp Pulse Resp BP Pulse Ox 98.3 F 86 18 104/68 95 12/23/17 11:20 12/23/17 11:20 12/23/17 11:20 12/23/17 11:20 12/23/17 11:20 - Neurological Exam Sensorimotor examination: Present: other (There is complete anesthesia of the right leg save an area in the right hip and groin region. She has no proprioception in the right foot and the great toe area. Has no temperature sensation in the right foot or leg.) Motor Examination: Present: other (She has normal strength bulk and tone of both upper extremities as well as the left lower extremity. No involuntary movements or atrophy are present.) Motor examination - right side: 5/5: deltoids, biceps, triceps, hydrochloric area supervisor Motor examination - left side: 5/5: deltoids, biceps, triceps, wrist flexion, wrist extension, hip flexors, hydrochloric area supervisor, quadriceps, tibialis Anterior, toe extension (EHL), plantarflexion Sensation intact: Present: other (Patient has normal sensation of the face, has paresthesias of the hands symmetrically. Has normal sensation of the arms down to the wrist. She has complete anesthesia of the right leg with exception of the right hip. She has normal sensation of the left leg.) Reflex and gait examination: other (Deep tendon reflexes are normal throughout this includes the biceps, triceps, brachial radialis, patellar, and Achilles symmetrically. No clonus or Babinski at present.) Mental Status Examination: Present: awake, alert, oriented to person, oriented to place, oriented to time, follows commands appropriately, answers questions appropriately, no agnosia, no aphasia, no aproxia Cranial nerve examination: Present: PERRL, EOMI, visual kramer intact, corneal reflexes brisk symmetrically, sensory to face intact, mastication intact, no facial asymmetry is present, no dysarthria, hearing is intact symmetrically, soft palate elevates bilaterally upon phonation, gag reflex intact, flexes SCM and trapezius muscles symmetrically with full power, tongue protrudes midline, no atrophy or facial fasiculations present Cerebellar examination: Present: no dysmetria, no truncal ataxia Results - Laboratory Findings CBC and BMP: 12/23/17 04:34 12/23/17 04:34 Abnormal lab findings: Abnormal lab results WBC 21.7 K/mcL (4.3-11.1) H 12/23/17 04:34 RDW 15.8 % (11.5-14.5) H 12/23/17 04:34 MPV 9.3 fL (9.4-12.4) L 12/23/17 04:34 Neutrophils # 19.3 K/mcL (1.6-8.9) H 12/22/17 13:55 Potassium 3.4 mEq/L (3.5-5.1) L 12/23/17 04:34 Chloride 111 mEq/L (98-107) H 12/23/17 04:34 Carbon Dioxide 22 mEq/L (23-29) L 12/23/17 04:34 Calcium 8.1 mg/dL (8.6-10.3) L 12/23/17 04:34 Consult Discharge Plan - Plan Referrals: Emi Rajan CNP [Primary Care Provider] -
[2017-12-23] MEDS ORDERED: Isovue-370 500 ML INFUS..BTL IV ONE (14:25)
--- NOTE | 2017-12-23 14:51 | Internal Med Progress Note ---
Date of Encounter: 12/23/17 Time of Encounter: 14:43 - Assessment and plan (1) Neurosensory deficit Current Visit: Yes Status: Acute Assessment and plan: Unclear etiology, possible conversion reaction according to neurology Neuro checks, fall precautions MRI of the brain and spine-negative Neurology consulted-I did update Dr. Patel concerning patient able to move leg at this time. She continues to complain of tingling. We will obtain CT of pelvis rule out possible mass. I will have PT and OT evaluate patient (2) Paresthesia and pain of both upper extremities Current Visit: Yes Status: Acute Assessment and plan: As above (3) Sweetwater's disease Current Visit: Yes Status: Acute Assessment and plan: Continue prednisone (4) Hypertension Current Visit: Yes Status: Acute Assessment and plan: Stable-continue with home medications Qualifiers: Hypertension type: essential hypertension Qualified Code(s): I10 - Essential (primary) hypertension (5) Tobacco abuse Current Visit: Yes Status: Acute Assessment and plan: Encourage patient to stop smoking nicotine patch (6) Hypokalemia Current Visit: Yes Status: Acute Assessment and plan: 3.4 this a.m.-oral replacement 20 mEq KCl we will recheck (7) DVT prophylaxis Current Visit: Yes Status: Acute Assessment and plan: Heparin subcutaneous (8) Leukocytosis Current Visit: Yes Status: Acute Assessment and plan: Patient is on steroids-afebrile we will continue to monitor Qualifiers: Leukocytosis type: unspecified Qualified Code(s): D72.829 - Elevated white blood cell count, unspecified - Time Spent With Patient Total time spent is greater than 50% in coordination of care (as documented) at patient's floor/unit and/or counseling patient: - Subjective Interval history: Patient seen and examined at bedside earlier this morning. This morning patient was unable to lift right leg off the bed describing numbness and tingling. Reported per nursing this afternoon that patient was able to lift right leg in the shower. On reassessment patient describes continued tingling however she is able to lift right leg and rotate right foot without any difficulty denies any pain or discomfort. I did update Dr. Patel, on changes. Will obtain CT of pelvis per neurology request. I did update patient concerning CT who agreed to plan - Constitutional Vitals: Temp Pulse Resp BP Pulse Ox 98.3 F 86 18 104/68 95 12/23/17 11:20 12/23/17 11:20 12/23/17 11:20 12/23/17 11:20 12/23/17 11:20 General appearance: Present: A&O X 3 - Head Head exam: Present: atraumatic, normocephalic - Eye Eye exam: Present: PERRL, conjuntiva pink, sclera anicteric Pupils: Present: PERRL - Neck Neck exam general surgery: Present: supple, trachea midline. Absent: lymphadenopathy - Respiratory Respiratory exam: Present: CTAB. Absent: accessory muscle use, rales, rhonchi, wheezes - Cardiovascular Cardiovascular exam: Present: RRR, +S1, +S2. Absent: diastolic murmur, gallop, rubs, systolic murmur - GI/Abdominal GI/Abdominal exam: Present: normal bowel sounds, soft, no peritoneal signs. Absent: distended, tenderness - Extremities Exam Extremities exam: Present: warm, radial pulses palpable and symmetrical. Absent : calf tenderness, cyanotic, pedal edema - Neurological Exam Neurological exam: Present: CN II-XII intact, oriented X3, no focal deficits. Absent: pronater drift, facial droop, speech deficit - Expanded Neurological Exam Patient oriented to: Present: person, place, time Neuro motor strength exam: LUE: 5, RUE: 5, LLE: 5, RLE: 4 Coma Scale Eye Opening: Spontaneous Coma Scale Motor Response: Obeys Commands Coma Scale Verbal Response: Oriented Coma Scale Total: 15 - Skin Skin exam: Present: dry, intact Internal Medicine: Result - Labs CBC & Chem 7: 12/23/17 04:34 12/23/17 04:34 Labs: Short CBC 12/23/17 Range/Units 04:34 WBC 21.7 H (4.3-11.1) K/mcL Hgb 12.4 D (11.5-15.4) g/dL Hct 38.0 (35.3-44.9) % Plt Count 341 (140-400) K/mcL BMP 12/23/17 04:34 Sodium 139 Potassium 3.4 L Chloride 111 H Carbon Dioxide 22 L BUN 12 Creatinine 0.65 Glucose 87 Calcium 8.1 L - ABG Interpretation ABG results: PT/INR, D-dimer PT 10.6 Seconds (9.4-12.1) 12/22/17 13:55 - Impressions Impressions Brain MRI 12/22/17 17:16 IMPRESSION: No acute intracranial abnormality D/ / Wan Painter / Wan Painter Interpreting Provider: Wan Painter Cervical Spine MRI 12/22/17 17:16 IMPRESSION: 1. Unremarkable MRI of the cervical spine. No findings to explain the numbness and tingling in the face, arms, and legs. D/ / 12/22/2017 22:20:10 Hakeem Leal MD / ivan Interpreting Provider: Hakeem Leal MD Lumbar Spine MRI 12/22/17 17:16 IMPRESSION: 1. Minimal disc bulges at L4-L5, and L5-S1. No central spinal canal or foraminal narrowing. D/ / 12/22/2017 22:23:45 Hakeem Leal MD / ivan Interpreting Provider: Hakeem Leal MD Thoracic Spine MRI 12/22/17 17:16 IMPRESSION: 1. Unremarkable MRI of the thoracic spine. No findings to account for the patient's facial, arm, and leg numbness/tingling. D/ / 12/22/2017 22:21:40 Hakeem Leal MD / ivan Interpreting Provider: Hakeem Leal MD Consult Discharge Plan - Plan Referrals: Emi Rajan CNP [Primary Care Provider] -
--- NOTE | 2017-12-23 16:57 | Electrocardiograph Report ---
[address] [address] Test Date: 2017-12-22 Pat Name: Marilou Roque Department: 102 Room: 3B Gender: [employer] Consultant: Wally : 1985 Requested By: aDgoberto Justin Order Number: [id number] Reading MD: Jarrell Sheth Measurements Intervals [place] Rate: 100 P: 46 GA: 157 QRS: -1 QRSD: 93 T: -5 QT: 341 QTc: 398 Interpretive Statements SINUS TACHYCARDIA LEFT ATRIAL ENLARGEMENT Electronically Signed On 12-23-2017 16:55:41 EDT by Jarrell Sheth
[2017-12-24] MEDS: *HR* Heparin 5,000 UNIT/ML VIAL SQ SCH (05:46)
[2017-12-24 07:26] LABS: Basophils # 0.1 K/mcL (0.0-0.2); Basophils % 0.3 %; Eosinophils # 0.1 K/mcL (0.0-0.6); Eosinophils % 0.3 %; Hematocrit 38.2 % (35.3-44.9); Hemoglobin 12.5 g/dL (11.5-15.4); Immature Granulocytes % 2.3 % (0-4); Lymphocytes # 2.5 K/mcL (0.6-4.6); Lymphocytes % 11.6 %; Mean Corpuscular HGB Conc 32.7 g/dL (31.6-35.5); Mean Corpuscular Volume 94.8 fL (83.0-100.0); Mean Platelet Volume 9.8 fL (9.4-12.4); Monocytes # 0.9 K/mcL (0.0-1.3); Neutrophils # 17.9 K/mcL (1.6-8.9); Platelet Count 343 K/mcL (140-400); Red Blood Count 4.03 M/mcL (3.82-4.97); Red Cell Distribution Width 15.4 % (11.5-14.5); Segmented Neutrophils % 81.5 %
[2017-12-24 07:45] LABS: BUN/Creatinine Ratio 18 (6-26); Blood Urea Nitrogen 10 mg/dL (6-20); Carbon Dioxide 19 mEq/L (23-29); Chloride 111 mEq/L (98-107); Glucose 116 mg/dL (70-105); Osmolality,Calculated 290 (280-300); Potassium 3.5 mEq/L (3.5-5.1); Sodium 140 mEq/L (136-145); eGFR For African Americans > 60 (> 60); eGFR For Non-African Americans > 60 (> 60)
[2017-12-24] MEDS: Metoprolol XL (24 HR) Succ 25 MG TAB.ER.24H PO SCH (08:08)
[2017-12-24] MEDS: Topiramate 25 MG TABLET PO SCH (08:08)
[2017-12-24] MEDS: predniSONE 10 MG TABLET PO SCH (08:08)
[2017-12-24] MEDS: Gabapentin 400 MG CAPSULE PO SCH (08:09)
[2017-12-24] MEDS: clonazePAM 1 MG TABLET PO SCH (08:09)
[2017-12-24] MEDS: Nicotine 21 MG PATCH.TD24 TD SCH (08:11)
[2017-12-24 11:33] VITALS: BP 113/72
--- NOTE | 2017-12-24 14:08 | Discharge Summary ---
- NOTES TO OUTPATIENT PROVIDER Notes to Outpatient Provider: Patient was seen by neurology MRI of brain cervical spine and thoracic spine and lumbar spine were all normal no evidence of demyelinating process reflexes were intact patient was seen by PT and OT-she eventually was able to regain movement and lower extremity and is able to ambulate without difficulty. Suspicious for conversion reaction. 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 Roque is a 32 year old female past medical history of PFO mitral valve prolapse [place]'s stress induced seizures. Patient originally presented to emergency department for paresthesia involving the face right leg weakness numbness and tingling of right leg. She did undergo a MRI of brain cervical and thoracic spine which were all negative. She was seen by neurology who did not feel that a lumbar puncture was needed. Venous Doppler of right leg was negative for any DVT Patient was seen by PT and OT-patient eventually regained ability to move her leg was able to ambulate independently. She did continue to have some cramping in her right leg. Patient potassium was low and we replace her potassium and she has returned back to normal. Paresthesia has resolved. Advised patient to follow-up with primary care as outpatient as well as with her neurologist. Advised patient to continue with home medications. Patient verbalized understanding. She is presently hemodynamically stable and neurologically intact at this time she is ready for discharge. Discharge discussed with: patient - Time Spent with Patient Total time spent providing and/or coordinating discharge services: - Discharge Medications Home Medications: Gabapentin [Neurontin] 800 mg PO TID 12/22/17 [History] Ibuprofen 800 mg PO TID 12/22/17 [History] Metoprolol Succinate [Toprol Xl] 25 mg PO DAILY 12/22/17 [History] Minocycline [Minocin] 50 mg PO DAILY 12/22/17 [History] Omeprazole [PriLOSEC] 20 mg PO DAILY 12/22/17 [History] Topiramate [Topamax] 25 mg PO TID 12/22/17 [History] Triamterene/HCTZ 37.5/25mg [Dyazide] 1 each PO DAILY 12/22/17 [History] Zolpidem [Ambien] 10 mg PO HS 12/22/17 [History] clonazePAM [Klonopin] 1 mg PO TID 12/22/17 [History] predniSONE [PredniSONE] 25 mg PO DAILY 12/22/17 [History] raNITIdine HCl [Ranitidine HCl] 300 mg PO DAILY 12/22/17 [History] Allergies/Adverse Reactions: 3 Allergy/AdvReac Type Severity Reaction Status Date / Time dextromethorphan Allergy Seizure Verified 12/22/17 16:01 [From Capmist DM] guaifenesin [From Capmist DM] Allergy Seizure Verified 12/22/17 16:01 latex Allergy Rash Verified 12/22/17 16:01 morphine Allergy Hives Verified 12/22/17 16:01 pseudoephedrine Allergy Seizure Verified 12/22/17 16:01 [From Capmist DM] magnesium sulfate Allergy Palpitation Uncoded 12/22/17 16:01 s Date of admission: 12/22/17 16:20 Primary care physician: Emi Rajan, Discharging clinician: Imani Blanco Anticipated date of discharge: 12/24/17 - Constitutional Vitals: Temp Pulse Resp BP Pulse Ox 98.3 F 91 16 113/72 95 12/24/17 11:32 12/24/17 11:32 12/24/17 11:32 12/24/17 11:32 12/24/17 11:32 General appearance: Present: A&O X 3 - Head Head exam: Present: atraumatic, normocephalic - Eye Eye exam: Present: PERRL, conjuntiva pink, sclera anicteric Pupils: Present: PERRL - Neck Neck exam general surgery: Present: supple, trachea midline. Absent: lymphadenopathy - Respiratory Respiratory exam: Present: CTAB. Absent: accessory muscle use, rales, rhonchi, wheezes - Cardiovascular Cardiovascular exam: Present: RRR, +S1, +S2. Absent: diastolic murmur, gallop, rubs, systolic murmur - GI/Abdominal GI/Abdominal exam: Present: normal bowel sounds, soft, no peritoneal signs. Absent: distended, tenderness - Extremities Exam Extremities exam: Present: warm, radial pulses palpable and symmetrical. Absent : calf tenderness, cyanotic, pedal edema - Neurological Exam Neurological exam: Present: CN II-XII intact, oriented X3, no focal deficits. Absent: pronater drift, facial droop, speech deficit - Skin Skin exam: Present: dry, intact - Patient Status Disposition: Home, Self-Care Condition: Fair Functional capacity at discharge: independent ambulation Overall status at discharge: patient is back to baseline - Discharge Instructions Follow Up With: Emi Rajan CNP [Primary Care Provider] - 12/29/17 12:00 pm - Diet and Activity Activity: increase activity as tolerated Diet: advance to your usual diet
== END 2017-12-24 14:52 | disposition home or self-care (01) ==
LOC: EMEROO 13:05 → 3BNU 13:05
PROVIDERS: ADMIT Internal Medicine Hematology & Oncology; ATTEND Internal Medicine Hematology & Oncology

== ENCOUNTER 2018-08-05 15:27 | Observation (INO) ==
[2018-08-05] MEDS ORDERED: Nitroglycerin 0.4 MG TAB.SUBL SL PRN (15:42)
--- NOTE | 2018-08-05 15:50 | Emergency Department Note ---
Disposition Clinical Impression: Hypokalemia, [place]'s disease, Palpitations Chest pain Qualifiers: Chest pain type: unspecified Qualified Code(s): R07.9 - Chest pain, unspecified Disposition: Admitted As Inpatient Condition: Good Referrals: Emi Rajan CNP [Primary Care Provider] - Forms: ED Satisfaction Letter Time of Disposition: 17:50 General Adult HPI - General Chief complaint: ED Chest Pain Stated complaint: CP Time Seen by Provider: 08/05/18 15:30 Source: patient Mode of arrival: wheelchair Limitations: no limitations Nursing Notes Reviewed: Yes Vital Signs Reviewed: Yes - History of Present Illness HPI Narrative: 33-year-old female with significant past medical history of [place]'s disease, atrial tachycardia, mitral valve prolapse currently with a loop recorder presenting to the emergency department with chief complaint of chest pain and palpitations. Patient states for the past 2 days she has had progressive chest pain and now has been constant since 10:00 this morning. Describes it as substernal, crushing. Does not radiate does not make her nauseated and she has not vomited. Patient does state she has been significantly more fatigued over the past 2 days and she normally is. She denies any recent illnesses, fevers, shortness of breath, abdominal pain, vomiting or diarrhea. Denies any known sick contacts. She came in because her chest pain was so severe she was concerned that she was having a heart attack. Pain Scale: 6 - Related Data Home Medications Medication Instructions Recorded Confirmed Gabapentin [Neurontin] 800 mg PO TID 12/22/17 07/23/18 Ibuprofen 800 mg PO TID PRN 12/22/17 07/23/18 Minocycline [Minocin] 50 mg PO DAILY 12/22/17 07/23/18 Topiramate [Topamax] 25 mg PO TID 12/22/17 07/23/18 Triamterene/HCTZ 37.5/25mg 1 each PO DAILY 12/22/17 07/23/18 [Dyazide] Zolpidem [Ambien] 10 mg PO HS 12/22/17 07/23/18 clonazePAM [Klonopin] 1 mg PO TID 12/22/17 07/23/18 predniSONE [PredniSONE] 5 mg PO QID 12/22/17 07/23/18 raNITIdine HCl [Ranitidine HCl] 300 mg PO HS 12/22/17 07/23/18 Aspirin [Lo-Dose Aspirin EC] 81 mg PO DAILY 07/23/18 07/23/18 Cyclobenzaprine [Flexeril] 10 mg PO TID PRN 07/23/18 07/23/18 Hydrocodone/Acetaminophen [[place] 1 each PO Q6H PRN 07/23/18 07/23/18 10-325 Tablet] Hydrocortisone Sodium Succ 1 vial IN DAILY PRN 07/23/18 07/23/18 [Solu-Cortef] Metoprolol Succinate [Toprol Xl] 25 mg PO QPM 07/23/18 07/23/18 Metoprolol Succinate [Toprol Xl] 50 mg PO QAM 07/23/18 07/23/18 Nystatin [Nystatin Suspension] 100,000 units PO QID PRN 07/23/18 07/23/18 Omeprazole [PriLOSEC] 40 mg PO DAILY 07/23/18 07/23/18 Allergies Allergy/AdvReac Type Severity Reaction Status Date / Time dextromethorphan Allergy Seizure Verified 12/22/17 16:01 [From Capmist DM] guaifenesin [From Capmist DM] Allergy Seizure Verified 12/22/17 16:01 latex Allergy Rash Verified 12/22/17 16:01 morphine Allergy Hives Verified 12/22/17 16:01 pseudoephedrine Allergy Seizure Verified 12/22/17 16:01 [From Capmist DM] magnesium sulfate Allergy Palpitation Uncoded 12/22/17 16:01 s All systems ED: reviewed and negative except as stated. Constitutional: Denies: fever Eyes: Reports: as per HPI ENT ED: Reports: as per HPI Cardiovascular: Reports: chest pain, palpitations Respiratory: Denies: dyspnea, wheezes Gastrointestinal: Denies: abdominal pain, vomiting Genitourinary: Reports: as per HPI Musculoskeletal: Reports: as per HPI Integumentary: Reports: as per HPI Neurological: Reports: other (Fatigue) Psychiatric: Reports: as per HPI Endocrine: Reports: as per HPI Hematological/Lymphatic: Reports: as per HPI Allergic/Immunologic: Reports: as per HPI Past Medical History - Past Medical History Attestation: Yes The following information was validated with the patient. Medical history: Reports: cancer, seizures, other Surgical history: Reports: cholecystectomy, hysterectomy Psychiatric history: Reports: depression - Social History Smoking Status: Current every day smoker Smokeless Tobacco Status: No Alcohol use: Reports: none Drug use: Reports: none Physical Exam - General Limitations: no limitations General appearance: alert, in no apparent distress - Head Head exam: atraumatic, normocephalic, normal inspection - Eye Eye exam: Present: normal appearance, EOMI. Absent: scleral icterus, conjunctival injection - ENT ENT exam: mucous membranes moist - Neck Neck exam: Present: full ROM - Chest Chest inspection: Present: symmetric chest wall rise - Respiratory Respiratory exam: Present: normal lung sounds bilaterally. Absent: respiratory distress, wheezes - Cardiovascular Cardiovascular exam: Present: normal rhythm, tachycardia, normal heart sounds - Abdominal Exam Abdominal exam: Present: soft, Non-Tender. Absent: distention, guarding, rebound - Extremities Exam Extremities exam: Present: full ROM - Neurological Exam Neurological exam: Present: alert, oriented X3 - Psychiatric Psychiatric exam: Present: normal affect - Skin Skin exam: Present: warm Course Course Narrative: 33-year-old female presenting for chest pain and palpitations. Patient also states she has been fatigued for the past 2 days. In the room patient is somnolent but arousable. She is hemodynamically stable. Answering all questions appropriately. Her physical exam shows tachycardia but otherwise is b enign. Due to patient's Kalen's disease we will provide her with her stress dose steroids at 100 mg we will also perform chest pain rule out with basic laboratory analysis, troponin, EKG and chest x-ray. Disposition pending results. Patient agrees with this plan. We will try to reach out to [employer] for loop recorder information. - Reevaluation(s) Reevaluation #1: Patient's laboratory analysis shows chronic leukocytosis is due to her chronic steroid use. Also some mild hypokalemia at 2.9 we will orally replete that. Initial troponin negative. We have attempted multiple times to contact the loop recorder device company and have not received any word about the status. I spoke with the production utility worker rehabilitation technician Dr. Do about the patient. He agrees the patient to be admitted for observation if she continues to have chest pain for chest pain rule out. I spoke at length with the patient would like to be admitted for further evaluation and treatment. At this time patient remains alert and oriented 3 and hemodynamically stable. I spoke with the hospitalist rehabilitation technician Dr. Sheikh who agrees to accept the patient at this time. Vital Signs Temperature 98.2 F 08/05/18 15:31 Pulse Rate 112 08/05/18 15:31 Respiratory Rate 20 08/05/18 15:31 Blood Pressure 123/80 08/05/18 15:31 O2 Sat by Pulse Oximetry 100 08/05/18 15:31 Temperature 98.2 F 08/05/18 15:31 Pulse Rate 130 08/05/18 16:22 Respiratory Rate 22 08/05/18 16:22 Blood Pressure 110/69 08/05/18 16:22 O2 Sat by Pulse Oximetry 100 08/05/18 16:22 Oxygen Delivery Oxygen Delivery Room Air Medical Decision Making - Lab Data Result diagrams: 08/05/18 16:10 08/05/18 16:10 Lab Results 08/05/18 08/05/18 08/05/18 Range/Units 16:00 16:10 16:10 WBC 29.2 H (4.3-11.1) K/mcL RBC 4.67 (3.82-4.97) M/mcL Hgb 14.0 (11.5-15.4) g/dL Hct 43.6 (35.3-44.9) % MCV 93.4 (83.0-100.0) fL MCH 30.0 (28.0-33.3) pg MCHC 32.1 (31.6-35.5) g/dL RDW 15.3 H (11.5-14.5) % Plt Count 433 H (140-400) K/mcL MPV 9.4 (9.4-12.4) fL Immature Gran % 2.3 (0-4) % Seg Neutrophils % 77.7 % Lymphocytes % 13.9 % Monocytes % 5.1 % Eosinophils % 0.6 % Basophils % 0.4 % Neutrophils # 22.7 H (1.6-8.9) K/mcL Lymphocytes # 4.1 (0.6-4.6) K/mcL Monocytes # 1.5 H (0.0-1.3) K/mcL Eosinophils # 0.2 (0.0-0.6) K/mcL Basophils # 0.1 (0.0-0.2) K/mcL Reactive Lymphocytes Present A (Not Present) Sodium 138 (136-145) mEq/L Potassium 2.9 L (3.5-5.1) mEq/L Chloride 106 (98-107) mEq/L Carbon Dioxide 21 L (23-29) mEq/L BUN 12 (6-20) mg/dL Creatinine 0.90 (0.60-1.20) mg/dL Est GFR ( Amer) > 60 (> 60) Est GFR (Non-Af Amer) > 60 (> 60) BUN/Creatinine Ratio 13 (6-26) Glucose 81 (70-105) mg/dL Calculated Osmolality 285 (280-300) Calcium 8.5 L (8.6-10.3) mg/dL Troponin I < 0.03 (< 0.04) ng/mL TSH (0.340-5.600) mcIU/mL Urine Color Yellow (Yellow) Urine Clarity Clear (Clear) Urine pH 6.0 (5.0-8.0) pH Units Ur Specific [place] 1.009 L (1.010-1.025) Urine Protein Negative (Neg-Trace) mg/dL Urine Glucose (UA) Normal (Normal) mg/dL Urine Ketones Negative (Negative) mg/dL Urine Blood Negative (Negative) Urine Nitrite Negative (Negative) Urine Bilirubin Negative (Negative) Urine Urobilinogen Normal (Normal) mg/dL Ur Leukocyte Esterase Negative (Negative) Ur Culture Indicated? NO (NO) 08/05/18 Range/Units 16:10 WBC (4.3-11.1) K/mcL RBC (3.82-4.97) M/mcL Hgb (11.5-15.4) g/dL Hct (35.3-44.9) % MCV (83.0-100.0) fL MCH (28.0-33.3) pg MCHC (31.6-35.5) g/dL RDW (11.5-14.5) % Plt Count (140-400) K/mcL MPV (9.4-12.4) fL Immature Gran % (0-4) % Seg Neutrophils % % Lymphocytes % % Monocytes % % Eosinophils % % Basophils % % Neutrophils # (1.6-8.9) K/mcL Lymphocytes # (0.6-4.6) K/mcL Monocytes # (0.0-1.3) K/mcL Eosinophils # (0.0-0.6) K/mcL Basophils # (0.0-0.2) K/mcL Reactive Lymphocytes (Not Present) Sodium (136-145) mEq/L Potassium (3.5-5.1) mEq/L Chloride (98-107) mEq/L Carbon Dioxide (23-29) mEq/L BUN (6-20) mg/dL Creatinine (0.60-1.20) mg/dL Est GFR ( Amer) (> 60) Est GFR (Non-Af Amer) (> 60) BUN/Creatinine Ratio (6-26) Glucose (70-105) mg/dL Calculated Osmolality (280-300) Calcium (8.6-10.3) mg/dL Troponin I (< 0.04) ng/mL TSH 1.271 (0.340-5.600) mcIU/mL Urine Color (Yellow) Urine Clarity (Clear) Urine pH (5.0-8.0) pH Units Ur Specific [place] (1.010-1.025) Urine Protein (Neg-Trace) mg/dL Urine Glucose (UA) (Normal) mg/dL Urine Ketones (Negative) mg/dL Urine Blood (Negative) Urine Nitrite (Negative) Urine Bilirubin (Negative) Urine Urobilinogen (Normal) mg/dL Ur Leukocyte Esterase (Negative) Ur Culture Indicated? (NO) - EKG Data EKG #1 EKG attestation: Yes I reviewed and interpreted this EKG. EKG results narrative: Sinus tachycardia. 115 beats per minute. MO interval 129, QRS 97, QTC 471. No sign of acute ST segment elevation or ischemia. Compared to previous EKG completed on 07/23/2018 new sinus tachycardia Attestation Statement - Attestation Attestation: I, Reyes Maher DO, examined this patient [id number] and my medical decis ion-making was reviewed with Dr. Balbina Bear, Resident Physician. I agree with the documented findings, disposition and treatment plan as described except to the extent set forth below. Please see my progress notes for details.
[2018-08-05] MEDS ORDERED: methylPREDNISolone 125 MG/2 ML VIAL IVP STA (16:00)
[2018-08-05 16:10] LABS: Bilirubin,Urine Negative (Negative); Blood,Urine Negative (Negative); Clarity,Urine Clear (Clear); Color,Urine Yellow (Yellow); Glucose,Urine (UA) Normal (Normal); Ketones,Urine Negative (Negative); Leukocyte Esterase,Urine Negative (Negative); Nitrite,Urine Negative (Negative); Protein,Urine Negative (Neg-Trace); Specific Gravity,Urine 1.009 (1.010-1.025); Urobilinogen,Urine Normal (Normal)
[2018-08-05] MEDS: Aspirin 325 MG TABLET PO ONE (16:10)
[2018-08-05 16:28] LABS: Basophils % 0.4 %; Eosinophils % 0.6 %
[2018-08-05 16:30] LABS: Basophils # 0.1 K/mcL (0.0-0.2); Eosinophils # 0.2 K/mcL (0.0-0.6); Hematocrit 43.6 % (35.3-44.9); Immature Granulocytes % 2.3 % (0-4); Lymphocytes # 4.1 K/mcL (0.6-4.6); Lymphocytes % 13.9 %; Mean Corpuscular HGB Conc 32.1 g/dL (31.6-35.5); Mean Corpuscular Volume 93.4 fL (83.0-100.0); Mean Platelet Volume 9.4 fL (9.4-12.4); Monocytes # 1.5 K/mcL (0.0-1.3); Monocytes % 5.1 %; Neutrophils # 22.7 K/mcL (1.6-8.9); Platelet Count 433 K/mcL (140-400); Red Blood Count 4.67 M/mcL (3.82-4.97); Red Cell Distribution Width 15.3 % (11.5-14.5); Segmented Neutrophils % 77.7 %
[2018-08-05 16:49] LABS: BUN/Creatinine Ratio 13 (6-26); Blood Urea Nitrogen 12 mg/dL (6-20); Calcium 8.5 mg/dL (8.6-10.3); Carbon Dioxide 21 mEq/L (23-29); Chloride 106 mEq/L (98-107); Glucose 81 mg/dL (70-105); Osmolality,Calculated 285 (280-300); Potassium 2.9 mEq/L (3.5-5.1); Sodium 138 mEq/L (136-145); eGFR For Non-African Americans > 60 (> 60)
[2018-08-05 16:50] LABS: Troponin I < 0.03 ng/mL (< 0.04)
[2018-08-05 16:51] LABS: Reactive Lymphocytes Present (Not Present)
--- NOTE | 2018-08-05 16:58 | Emergency Department Note ---
Disposition Clinical Impression: Hypokalemia, Cherry's disease, Palpitations Chest pain Qualifiers: Chest pain type: unspecified Qualified Code(s): R07.9 - Chest pain, unspecified Disposition: Admitted As Inpatient Condition: Good Referrals: Emi Rajan CNP [Primary Care Provider] - Forms: ED Satisfaction Letter Time of Disposition: 17:59 General Adult HPI - General Chief complaint: ED Chest Pain Stated complaint: CP Time Seen by Provider: 08/05/18 15:30 Source: patient Mode of arrival: wheelchair Limitations: no limitations - History of Present Illness Pain Scale: 6 - Related Data Home Medications Medication Instructions Recorded Confirmed Gabapentin [Neurontin] 800 mg PO TID 12/22/17 07/23/18 Ibuprofen 800 mg PO TID PRN 12/22/17 07/23/18 Minocycline [Minocin] 50 mg PO DAILY 12/22/17 07/23/18 Topiramate [Topamax] 25 mg PO TID 12/22/17 07/23/18 Triamterene/HCTZ 37.5/25mg 1 each PO DAILY 12/22/17 07/23/18 [Dyazide] Zolpidem [Ambien] 10 mg PO HS 12/22/17 07/23/18 clonazePAM [Klonopin] 1 mg PO TID 12/22/17 07/23/18 predniSONE [PredniSONE] 5 mg PO QID 12/22/17 07/23/18 raNITIdine HCl [Ranitidine HCl] 300 mg PO HS 12/22/17 07/23/18 Aspirin [Lo-Dose Aspirin EC] 81 mg PO DAILY 07/23/18 07/23/18 Cyclobenzaprine [Flexeril] 10 mg PO TID PRN 07/23/18 07/23/18 Hydrocodone/Acetaminophen [[place] 1 each PO Q6H PRN 07/23/18 07/23/18 10-325 Tablet] Hydrocortisone Sodium Succ 1 vial IN DAILY PRN 07/23/18 07/23/18 [Solu-Cortef] Metoprolol Succinate [Toprol Xl] 25 mg PO QPM 07/23/18 07/23/18 Metoprolol Succinate [Toprol Xl] 50 mg PO QAM 07/23/18 07/23/18 Nystatin [Nystatin Suspension] 100,000 units PO QID PRN 07/23/18 07/23/18 Omeprazole [PriLOSEC] 40 mg PO DAILY 07/23/18 07/23/18 Allergies Allergy/AdvReac Type Severity Reaction Status Date / Time dextromethorphan Allergy Seizure Verified 12/22/17 16:01 [From Capmist DM] guaifenesin [From Capmist DM] Allergy Seizure Verified 12/22/17 16:01 latex Allergy Rash Verified 12/22/17 16:01 morphine Allergy Hives Verified 12/22/17 16:01 pseudoephedrine Allergy Seizure Verified 12/22/17 16:01 [From Capmist DM] magnesium sulfate Allergy Palpitation Uncoded 12/22/17 16:01 s Constitutional: Denies: fever Eyes: Reports: as per HPI ENT ED: Reports: as per HPI Cardiovascular: Reports: chest pain, palpitations Respiratory: Denies: dyspnea, wheezes Gastrointestinal: Denies: abdominal pain, vomiting Genitourinary: Reports: as per HPI Musculoskeletal: Reports: as per HPI Integumentary: Reports: as per HPI Neurological: Reports: other (Fatigue) Psychiatric: Reports: as per HPI Endocrine: Reports: as per HPI Hematological/Lymphatic: Reports: as per HPI Allergic/Immunologic: Reports: as per HPI Past Medical History - Past Medical History Medical history: Reports: cancer, seizures, other Surgical history: Reports: cholecystectomy, hysterectomy Psychiatric history: Reports: depression - Social History Smoking Status: Current every day smoker Smokeless Tobacco Status: No Alcohol use: Reports: none Drug use: Reports: none Physical Exam - General Limitations: no limitations General appearance: alert, in no apparent distress Course Vital Signs Temperature 98.2 F 08/05/18 15:31 Pulse Rate 112 08/05/18 15:31 Respiratory Rate 20 08/05/18 15:31 Blood Pressure 123/80 08/05/18 15:31 O2 Sat by Pulse Oximetry 100 08/05/18 15:31 Temperature 98.2 F 08/05/18 15:31 Pulse Rate 130 08/05/18 16:22 Respiratory Rate 22 08/05/18 16:22 Blood Pressure 110/69 08/05/18 16:22 O2 Sat by Pulse Oximetry 100 08/05/18 16:22 Oxygen Delivery Oxygen Delivery Room Air Medical Decision Making - Lab Data Result diagrams: 08/05/18 16:10 08/05/18 16:10 Lab Results 08/05/18 08/05/18 08/05/18 Range/Units 16:00 16:10 16:10 WBC 29.2 H (4.3-11.1) K/mcL RBC 4.67 (3.82-4.97) M/mcL Hgb 14.0 (11.5-15.4) g/dL Hct 43.6 (35.3-44.9) % MCV 93.4 (83.0-100.0) fL MCH 30.0 (28.0-33.3) pg MCHC 32.1 (31.6-35.5) g/dL RDW 15.3 H (11.5-14.5) % Plt Count 433 H (140-400) K/mcL MPV 9.4 (9.4-12.4) fL Immature Gran % 2.3 (0-4) % Seg Neutrophils % 77.7 % Lymphocytes % 13.9 % Monocytes % 5.1 % Eosinophils % 0.6 % Basophils % 0.4 % Neutrophils # 22.7 H (1.6-8.9) K/mcL Lymphocytes # 4.1 (0.6-4.6) K/mcL Monocytes # 1.5 H (0.0-1.3) K/mcL Eosinophils # 0.2 (0.0-0.6) K/mcL Basophils # 0.1 (0.0-0.2) K/mcL Reactive Lymphocytes Present A (Not Present) Sodium 138 (136-145) mEq/L Potassium 2.9 L (3.5-5.1) mEq/L Chloride 106 (98-107) mEq/L Carbon Dioxide 21 L (23-29) mEq/L BUN 12 (6-20) mg/dL Creatinine 0.90 (0.60-1.20) mg/dL Est GFR ( Amer) > 60 (> 60) Est GFR (Non-Af Amer) > 60 (> 60) BUN/Creatinine Ratio 13 (6-26) Glucose 81 (70-105) mg/dL Calculated Osmolality 285 (280-300) Calcium 8.5 L (8.6-10.3) mg/dL Troponin I < 0.03 (< 0.04) ng/mL TSH (0.340-5.600) mcIU/mL Urine Color Yellow (Yellow) Urine Clarity Clear (Clear) Urine pH 6.0 (5.0-8.0) pH Units Ur Specific [place] 1.009 L (1.010-1.025) Urine Protein Negative (Neg-Trace) mg/dL Urine Glucose (UA) Normal (Normal) mg/dL Urine Ketones Negative (Negative) mg/dL Urine Blood Negative (Negative) Urine Nitrite Negative (Negative) Urine Bilirubin Negative (Negative) Urine Urobilinogen Normal (Normal) mg/dL Ur Leukocyte Esterase Negative (Negative) Ur Culture Indicated? NO (NO) 08/05/18 Range/Units 16:10 WBC (4.3-11.1) K/mcL RBC (3.82-4.97) M/mcL Hgb (11.5-15.4) g/dL Hct (35.3-44.9) % MCV (83.0-100.0) fL MCH (28.0-33.3) pg MCHC (31.6-35.5) g/dL RDW (11.5-14.5) % Plt Count (140-400) K/mcL MPV (9.4-12.4) fL Immature Gran % (0-4) % Seg Neutrophils % % Lymphocytes % % Monocytes % % Eosinophils % % Basophils % % Neutrophils # (1.6-8.9) K/mcL Lymphocytes # (0.6-4.6) K/mcL Monocytes # (0.0-1.3) K/mcL Eosinophils # (0.0-0.6) K/mcL Basophils # (0.0-0.2) K/mcL Reactive Lymphocytes (Not Present) Sodium (136-145) mEq/L Potassium (3.5-5.1) mEq/L Chloride (98-107) mEq/L Carbon Dioxide (23-29) mEq/L BUN (6-20) mg/dL Creatinine (0.60-1.20) mg/dL Est GFR ( Amer) (> 60) Est GFR (Non-Af Amer) (> 60) BUN/Creatinine Ratio (6-26) Glucose (70-105) mg/dL Calculated Osmolality (280-300) Calcium (8.6-10.3) mg/dL Troponin I (< 0.04) ng/mL TSH 1.271 (0.340-5.600) mcIU/mL Urine Color (Yellow) Urine Clarity (Clear) Urine pH (5.0-8.0) pH Units Ur Specific [place] (1.010-1.025) Urine Protein (Neg-Trace) mg/dL Urine Glucose (UA) (Normal) mg/dL Urine Ketones (Negative) mg/dL Urine Blood (Negative) Urine Nitrite (Negative) Urine Bilirubin (Negative) Urine Urobilinogen (Normal) mg/dL Ur Leukocyte Esterase (Negative) Ur Culture Indicated? (NO) Attestation Statement - Attestation Attestation: I, Reyes Maher DO, examined this patient [id number] and my medical decision-making was reviewed with Dr. Balbina Bear, Resident Physician. I agree with the documented findings, disposition and treatment plan as described except to the extent set forth below. Please see my progress notes for details. 33-year-old female seen and examined the time of arrival. Presents emergency room today with 3 days worth of left-sided chest pain. Symptoms are worse with deep inspiration. They were initially intermittent and now they are persistent. She denies any falls trauma or injury. 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 Denies any recent illnesses. Denying any cough cold congestion fevers or chills. Denies any headache or vision change. Denies any shortness of breath. Denies any nausea vomiting or diarrhea. She has not had any medication changes. Currently is a loop recorder placed on her anterior chest wall secondary to palpitations that she been feelin g on and off. Patient is otherwise asymptomatic at this time Emergency department. Vital signs are reviewed and appeared to be stable. Lungs are clear. Heart is regular. Chest wall appears to be stable no signs of redness infection or irritation. Abdomen is soft nontender nondistended no guarding no rigidity no peritoneal symptoms. No signs of swelling asymmetry or edema in the lower extremities at this time. Patient is neurologically intact. No other acute findings of the physical exam. Patient has on presentation here today. Multiple medical issues confound initial presentation for cardiac versus pulmonary versus adrenal related issues. Stress dose medications will be given for her adrenal insufficiency as well as EKG chest x-ray CBC chemistry troponin and urinalysis and urine test that will be completed here. Patient has no signs of cardiac arrhythmia I abnormality or interval abnormality on the initial EKG. Patient is otherwise stable. See detailed documentation of the physical exam, medical intervention, medical decision-making and disposition in the resident physician's note. No critical care provider the patient's treatment course at this time. 1700 Labs are unremarkable. Patient is otherwise currently stable. She still has left-sided chest wall pain that is been persistent for 3 days. Troponin is negative so clinical suspicion for ischemic cardiac related issue is low at this time. On-call kinesiology internship was contacted. Detailed review the presentation symptoms were discussed. They felt that the patient would warrant cardiac admission for observation considering her pain is been persistent. Pain medication will be provided since the nitroglycerin did not help with the symptoms and patient will be admitted for definitive management of chest pain with unknown etiology. 1745 Patient was discussed with the hospitalist Dr. Sheikh. No other recommendations or concerns noted at this time. Patient will be admitted for symptomatically control and observation. No other acute findings noted during this treatment course here in the emergency department. Patient will be monitored here in the emergency room until the admission process is completed.
[2018-08-05] MEDS ORDERED: *HR* FentaNYL (PF) 100 MCG/2 ML VIAL IVP ONE (17:16)
[2018-08-05] MEDS ORDERED: methylPREDNISolone 125 MG/2 ML VIAL IVP SCH (18:00)
[2018-08-05] MEDS ORDERED: Naloxone 0.4 MG/ML INJ IVP PRN (18:58)
[2018-08-05] MEDS: *HR* HYDROcodone/Acet 10/325 mg TABLET PO PRN (21:11)
[2018-08-05] MEDS: Gabapentin 400 MG CAPSULE PO SCH (21:11)
[2018-08-05] MEDS: clonazePAM 1 MG TABLET PO SCH (21:11)
[2018-08-05] MEDS: predniSONE 5 MG TABLET PO SCH (21:11)
--- NOTE | 2018-08-05 21:26 | Internal Med History&Physical ---
Date of Encounter: 08/05/18 Time of Encounter: 19:00 Internal Medicine - H&P: HPI Chief complaint: CHEST PAIN/PALPITATIONS. Admitted From: Home Plans for Post Hospital Care: Home History of present illness: The patient is a 33-year-old woman. She was diagnosed with this onset disease about 10 years ago. She is under care of her audiology assistant in [place], [place]. She has been treated for recurrent chest pain and palpitations for several months. She has had mitral valve prolapse, PFO and several other problems ment ioned below in past medical history. She has had progressing central anterior chest pain for the last few days. It was initially like off and on pressure/tightness; recently it is like recurrent stabbing pains. Those pains are pretty much constant; not triggered by any particular situations and not alleviated by any particular factors. Exertion does not make those pains worse. They are associated with a feeling of dyspnea at times; not associated with diaphoresis nausea or vomiting. She has had progressing weakness/fatigue for at least a few days. She has had a loop recorder inserted about 2 weeks ago. She is a patient of Dr. Sheth, [facility].. PAST MEDICAL HX: The patient has been treated for Addisons disease, mitral valve prolapse and PFO as mentioned above. She is also treated for fibromyalgia, some type of mood disorder and severe anxiety. She takes omeprazole and ranitidine for GERD. She takes minocycline for acne. She was treated for cervical cancer in the past. She had cholecystectomy and hysterectomy. She had a bone marrow biopsy about a year ago. PAST FAMILY HX: See below.. PAST SOCIAL HX: She is everyday smoker. She denies out and illicit drug use. REVIEW OF SYSTEMS: All 14 organ systems were reviewed by me with the patient. Positive and pertinent negative findings are listed above. The rest of organ systems is negative. PHYSICAL EXAM: Skin: Free of rash and discoloration. Musculoskeletal: There is mild tenderness at palpation of central anterior chest. Eyes: Sclera is white. There is no discharge from eyes. ENMT: Oral/pharyngeal mucosa is normal in appearance. There is no discharge from nose or ears. Respiratory: Normal breath sounds with no crackles and wheezes bilaterally. CV: Heart is regular with no gallop or murmur. GI: Abdomen is flat and soft with no palpable mass or visceromegaly. : There is no tenderness in patient's flanks bilaterally. Neuro exam: He has good strength in upper and lower extremities. He has normal eye movements. Psychiatric: He has normal affect. His thought process is appropriate to the situation. ADDITIONAL DATA: CBC shows hemoglobin of 14.0 with a WBC of 29.2 thousand and platelet count of 133,000. Her baseline WBC is usually around 24,000. Sodium is 138 with potassium of 2.9 and bicarb of 21. Creatinine he is 0.90 with a random glucose of 81. Calcium is 8.5. Troponin is below 0.03. TSH is 1.271. UA shows normal findings. Chest x-ray shows linear infiltrates at the right lung base; could represent atelectasis or pneumonia. A/P: Chest pain/palpitations. Not typical for coronary artery disease. Her last stress test from April 2018 was negative for ischemia. It was done with capacity of 7.0 METs. Her a loop recorder was implanted on 07/23/2018. We asked Dr. Sheth, cardiology to help us in managing this patient. I am ordering echocardiogram. Her EKG done at admission to the emergency department shows sinus tachycardia with a rate of 115 bpm. He did not show ischemia, myocardial infarction or other abnormalities. Addisons disease. The patient received stress dose of IV Solu-Medrol. Some kind of mood disorder (on Topamax) with severe anxiety/possible panic attacks. I will continue her previously ordered medications. Fibromyalgia with possible chronic fatigue syndrome. To continue high-dose Neurontin. GERD. It seems to be under control. I will continue Prilosec and Zantac. Mitral valve prolapse/PFO. I am ordering echocardiogram. Past Med Surg Social Fam HX - Past Medical History Medical history: cancer, seizures, other Additional medical history: PFO. Mitral valve proplapse. isaias's. cervical cancer Psychiatric history: depression - Past Surgical History Surgical History: cholecystectomy, hysterectomy Additional surgical history: bone marrow biopsy - Social History Smoking Status: Current every day smoker Smokeless Tobacco Status: No Alcohol use: none Drug use: none - Family History Mother Hx Family Cardiac Disorders: Yes (HTN) Internal Medicine - H&P: Meds Gabapentin [Neurontin] 800 mg PO TID 12/22/17 [History] Ibuprofen 800 mg PO TID PRN 12/22/17 [History] Minocycline [Minocin] 50 mg PO DAILY 12/22/17 [History] Topiramate [Topamax] 25 mg PO TID 12/22/17 [History] Triamterene/HCTZ 37.5/25mg [Dyazide] 1 tab PO QAM 12/22/17 [History] Zolpidem [Ambien] 10 mg PO HS 12/22/17 [History] clonazePAM [Klonopin] 1 mg PO TID 12/22/17 [History] predniSONE [PredniSONE] 15 mg PO 0900 12/22/17 [History] raNITIdine HCl [Ranitidine HCl] 300 mg PO HS 12/22/17 [History] Aspirin [Lo-Dose Aspirin EC] 81 mg PO DAILY 07/23/18 [History] Cyclobenzaprine [Flexeril] 10 mg PO TID PRN 07/23/18 [History] Hydrocodone/Acetaminophen [[place] 10-325 Tablet] 1 tab PO Q6H PRN 07/23/18 [History] Hydrocortisone Sodium Succ [Solu-Cortef] 1 vial IN DAILY PRN 07/23/18 [History] Metoprolol Succinate [Toprol Xl] 25 mg PO QPM 07/23/18 [History] Metoprolol Succinate [Toprol Xl] 50 mg PO QAM 07/23/18 [History] Nystatin [Nystatin Suspension] 5 ml PO QID PRN 07/23/18 [History] Omeprazole [PriLOSEC] 40 mg PO QAM 07/23/18 [History] predniSONE [PredniSONE] 10 mg PO 1700 08/05/18 [History] Allergy/AdvReac Type Severity Reaction Status Date / Time dextromethorphan Allergy Seizure Verified 12/22/17 16:01 [From Capmist DM] guaifenesin [From Capmist DM] Allergy Seizure Verified 12/22/17 16:01 latex Allergy Rash Verified 12/22/17 16:01 morphine Allergy Hives Verified 12/22/17 16:01 pseudoephedrine Allergy Seizure Verified 12/22/17 16:01 [From Capmist DM] magnesium sulfate Allergy Palpitation Uncoded 12/22/17 16:01 s - Constitutional Vitals: Temp Pulse Resp BP Pulse Ox 98.2 F 102 20 120/81 98 08/05/18 15:31 08/05/18 18:01 08/05/18 19:49 08/05/18 19:49 08/05/18 18:01 General appearance: Present: cooperative, A&O X 3, answers questions appropriately Exam: XX Internal Med - H&P Results - Labs CBC & Chem 7: 08/05/18 16:10 08/05/18 16:10 Labs: Short CBC 08/05/18 Range/Units 16:10 WBC 29.2 H (4.3-11.1) K/mcL Hgb 14.0 (11.5-15.4) g/dL Hct 43.6 (35.3-44.9) % Plt Count 433 H (140-400) K/mcL Neutrophils # 22.7 H (1.6-8.9) K/mcL BMP 08/05/18 16:10 Sodium 138 Potassium 2.9 L Chloride 106 Carbon Dioxide 21 L BUN 12 Creatinine 0.90 Glucose 81 Calcium 8.5 L Cardiac Enzymes 08/05/18 Range/Units 16:10 Troponin I < 0.03 (< 0.04) ng/mL Urine 08/05/18 Range/Units 16:00 Urine Color Yellow (Yellow) Urine Clarity Clear (Clear) Urine pH 6.0 (5.0-8.0) pH Units Ur Specific [place] 1.009 L (1.010-1.025) Urine Protein Negative (Neg-Trace) mg/dL Urine Glucose (UA) Normal (Normal) mg/dL - Impressions ITS Impressions Chest X-Ray 08/05/18 15:42 IMPRESSION: No acute process. Linear infiltrates at the right lung base could represent atelectasis or pneumonia D/ / Miguelangel Fair MD / Miguelangel Fair MD Interpreting Provider: Miguelangel Fair MD - Assessment and plan (1) Chest pain Current Visit: Yes Status: Acute Qualifiers: Chest pain type: other chest pain Qualified Code(s): R07.89 - Other chest pain; R07.8 - Other chest pain (2) Palpitations Current Visit: Yes Status: Acute (3) Mood disorder Current Visit: Yes Status: Chronic (4) Anxiety Current Visit: Yes Status: Chronic (5) Fibromyalgia Current Visit: Yes Status: Chronic (6) Acute hypokalemia Current Visit: Yes Status: Acute - Time Spent With Patient Total time spent is greater than 50% in coordination of care (as documented) at patient's floor/unit and/or counseling patient: 25 - 35 minutes - VTE Reasons for not Prescribing Prophylaxis: Treatment not Indicated - Low risk for VTE Deep Vein Thrombosis/Pulmonary Embolism Present on Admission: No
[2018-08-05] MEDS: Topiramate 25 MG TABLET PO SCH (23:48)
[2018-08-06] MEDS ORDERED: traMADol 50 MG TABLET PO PRN (00:09)
[2018-08-06] MEDS ORDERED: Acetaminophen 325 MG TABLET PO PRN (00:09)
[2018-08-06] MEDS: *HR* HYDROcodone/Acet 10/325 mg TABLET PO PRN ×4 (04:09→23:10)
[2018-08-06 05:56] LABS: Hematocrit 41.7 % (35.3-44.9); Hemoglobin 13.3 g/dL (11.5-15.4); Mean Corpuscular HGB Conc 31.9 g/dL (31.6-35.5); Mean Corpuscular Hemoglobin 29.8 pg (28.0-33.3); Mean Corpuscular Volume 93.5 fL (83.0-100.0); Mean Platelet Volume 9.4 fL (9.4-12.4); Platelet Count 451 K/mcL (140-400); Red Blood Count 4.46 M/mcL (3.82-4.97); Red Cell Distribution Width 15.2 % (11.5-14.5)
[2018-08-06 06:17] LABS: BUN/Creatinine Ratio 17 (6-26); Blood Urea Nitrogen 14 mg/dL (6-20); Calcium 8.7 mg/dL (8.6-10.3); Carbon Dioxide 17 mEq/L (23-29); Chloride 106 mEq/L (98-107); Glucose 168 mg/dL (70-105); Magnesium 1.7 mg/dL (1.6-2.6); Osmolality,Calculated 284 (280-300); Potassium 3.8 mEq/L (3.5-5.1); Sodium 135 mEq/L (136-145); eGFR For Non-African Americans > 60 (> 60)
[2018-08-06 06:34] LABS: Large Platelets Present (Not Present); Lymphocytes # 3.1 K/mcL (0.6-4.6); Monocytes # 1.2 K/mcL (0.0-1.3); Neutrophils # 26.7 K/mcL (1.6-8.9)
--- NOTE | 2018-08-06 09:27 | Electrocardiograph Report ---
[place] [id number] Test Date: 2018-08-05 Pat Name: Marilou Roque Department: EXAMC2 Room: 3B Gender: F Sec Reporting Consultant: : 1985 Requested By: Balbina Bear Order Number: [id number] Reading MD: Myron Suarez Measurements Intervals [place] Rate: 115 P: 71 CA: 159 QRS: 24 QRSD: 97 T: 6 QT: 340 QTc: 471 Interpretive Statements Sinus tachycardia Electronically Signed On 08-06-2018 9:26:12 EST by Myron Suarez
--- NOTE | 2018-08-06 10:53 | Cardiology Consult Note ---
<Kolton Johnson - Last Filed: 08/06/18 10:51> Date of Encounter: 08/06/18 Time of Encounter: 10:00 Assessment and Plan (1) Chest pain Current Visit: Yes Status: Acute Patient presents with atypical chest pain symptoms on-going for 4 days. Cardiac risk factors include tobacco abuse, PCOS, and HTN. Prior cardiac work-up: 07/2017- EF normal. Mild MVP with no regurgitation. 04/2018 exercise stress- EKG negative for iscemia. Pt completed 7.0 METs. C/o chest pain during exam. 12/2017 Holter- Rare PAC and PVC, Avg HR 103 bpm. EKG 08/05/18 -SR with no acute ST changes. Troponin negative. Loop recorder checked 08/05/17- No events, one symptoms reported during NSR. TTE pending. Recommend stress echocardigram for further evaluation. Patient and spouse agrees with plan. Qualifiers: Chest pain type: other chest pain Qualified Code(s): R07.89 - Other chest pain; R07.8 - Other chest pain Discussion w patient/family: The assessment and plan as outlined above was discussed with the patient and/or family members who expressed understanding and agreement. All questions were answered. Thank you for involving us in the care of your patient. Please call with any questions. History of Present Illness Consult date: 08/06/18 Requesting physician: Imani Blanco Consult reason: Chest pain Chief complaint: Chest ain for 4 days History of present illness: Ms. Roque is a 33 year old female with past medical history significant for [employer]'s disease, mild MVP without regurgitation , PFO, asthma, loop recorder for palpitations, seizures, polycystic ovarian disease, and tobacco abuse. She presented to the hospital with c/o severe fatigue and constant chest acing for four days. States that she just wants to sleep all day long. Denies alleviating factors for her chest pain. States that her chest pain increased yesterday when she became upset. She follows with [facility] for palpitations. She is on metoprolol for sinus tachycardia. Loop recorder inserted recently for monitoring. On my exam she c/o continued chest pain. The pain is not reproducible. She appears to be drowsy. There us a scabbed area over her loop recorder site. Cardiac work-up included EKG with no acute ST changes. Troponin was negative. Past Med Surg Social Fam HX - Past Medical History Medical history: cancer, seizures, other (AVN ankle, polycystic ovarian disease, MVP, PFO) Additional medical history: PFO. Mitral valve proplapse. isaias's. cervical cancer Psychiatric history: depression - Past Surgical History Surgical History: cholecystectomy, hysterectomy Additional surgical history: bone marrow biopsy - Social History Smoking Status: Current every day smoker Packs per day: 1 Smokeless Tobacco Status: No Alcohol use: none Drug use: none - Family History Mother Hx Family Cardiac Disorders: Yes (HTN) Medications and Allergies Gabapentin [Neurontin] 800 mg PO TID 12/22/17 [History] Ibuprofen 800 mg PO TID PRN 12/22/17 [History] Minocycline [Minocin] 50 mg PO DAILY 12/22/17 [History] Topiramate [Topamax] 25 mg PO TID 12/22/17 [History] Triamterene/HCTZ 37.5/25mg [Dyazide] 1 tab PO QAM 12/22/17 [History] Zolpidem [Ambien] 10 mg PO HS 12/22/17 [History] clonazePAM [Klonopin] 1 mg PO TID 12/22/17 [History] predniSONE [PredniSONE] 15 mg PO 0900 12/22/17 [History] raNITIdine HCl [Ranitidine HCl] 300 mg PO HS 12/22/17 [History] Aspirin [Lo-Dose Aspirin EC] 81 mg PO DAILY 07/23/18 [History] Cyclobenzaprine [Flexeril] 10 mg PO TID PRN 07/23/18 [History] Hydrocodone/Acetaminophen [[place] 10-325 Tablet] 1 tab PO Q6H PRN 07/23/18 [History] Hydrocortisone Sodium Succ [Solu-Cortef] 1 vial IN DAILY PRN 07/23/18 [History] Metoprolol Succinate [Toprol Xl] 25 mg PO QPM 07/23/18 [History] Metoprolol Succinate [Toprol Xl] 50 mg PO QAM 07/23/18 [History] Nystatin [Nystatin Suspension] 5 ml PO QID PRN 07/23/18 [History] Omeprazole [PriLOSEC] 40 mg PO QAM 07/23/18 [History] Ibuprofen [Motrin] 800 mg PO Q8HR PRN 08/05/18 [History] Nystatin [Nystatin Suspension] 100,000 units PO QID PRN 08/05/18 [History] predniSONE [PredniSONE] 10 mg PO 1700 08/05/18 [History] Allergy/AdvReac Type Severity Reaction Status Date / Time guaifenesin [From Capmist DM] Allergy Intermediate Seizure Verified 08/06/18 00:17 dextromethorphan Allergy Seizure Verified 12/22/17 16:01 [From Capmist DM] latex Allergy Rash Verified 12/22/17 16:01 morphine Allergy Hives Verified 12/22/17 16:01 pseudoephedrine Allergy Seizure Verified 12/22/17 16:01 [From Capmist DM] tramadol AdvReac Seizure Verified 08/06/18 00:17 magnesium sulfate Allergy Palpitation Uncoded 12/22/17 16:01 s All Systems Review: The remainder of the systems were reviewed and are negative Physical Examination Vital Signs, Last 4 Hours Temp Pulse Resp BP Pulse Ox 08/06/18 07:32 97.9 F 86 18 107/69 98 General: Conversant, Other (Drowsy) HEENT: Atraumatic, Normocephaly, Mucus Membranes Moist Neck: No JVD, Normal carotid pulses Cardiac: Reg Rate and Rhythm, Normal S1 and S2, No Murmur Lungs: Normal Breath Sounds, No Wheeze, Rales, Rhonchi Neuro: No focal deficits noted Abdomen: Soft, Non-Tender Extremities: No Clubbing, No Cyanosis, No Edema, Normal Pulses Results 08/06/18 05:34 08/06/18 05:34 Lab Results 08/05/18 08/05/18 08/05/18 16:10 16:10 16:10 WBC 29.2 H Hgb 14.0 Hct 43.6 Plt Count 433 H Sodium 138 Potassium 2.9 L Chloride 106 Carbon Dioxide 21 L BUN 12 Creatinine 0.90 Glucose 81 Calcium 8.5 L Magnesium Troponin I < 0.03 TSH 1.271 08/06/18 08/06/18 05:34 05:34 WBC 31.0 H* Hgb 13.3 Hct 41.7 Plt Count 451 H Sodium 135 L Potassium 3.8 D Chloride 106 Carbon Dioxide 17 L BUN 14 Creatinine 0.83 Glucose 168 H Calcium 8.7 Magnesium 1.7 Troponin I TSH - EKG Interpretation EKG results cardiology: personally reviewed (RBBB) Consult Discharge Plan - Plan Referrals: Emi Rajan CNP [Primary Care Provider] - 08/11/18 11:00 am <TracyEmi jaquez - Last Filed: 08/06/18 11:28> Date of Encounter: 08/06/18 - Attending Attestation I examined this patient and my medical decision-making was reviewed with the CUFF MATCHER. I agree with the documented findings, disposition and treatment plan as described except to the extent set forth below. Ms. Roque presents with atypical chest pain ongoing for several days. Cardiac workup so far is negative. ECG without new changes when compared to old ECG. Troponin negative. Loop Recorder without events. During patient reported symptom, NSR is observed. Vital signs stable - HR low 100's. No cardiac murmur rub or gallop, normal S1/S2 Labs reviewed Impression/Plan: 1. Atypical chest pain. Await echo findings. She did have a standard stress test that demonstrated normal findings except for patient reported chest pain. Recommend repeat testing with imaging (stress echo). Trend troponin. 2. Sinus tachycardia: Not new. Had holter in December demonstrating average HR 103 bpm. Possibly inappropriate sinus tachycardia or due to medications. Prior echo has demonstrated normal LV structure and function. Provided no new EF changes on echo ordered this hospitalization, this finding is not concerning. Recommend adequate hydration with water. 3. Family history SCD: Patient's primary Gang Tailer had implanted a LOOP recorder. This was interrogated in ER demonstrating no events. Assessment and Plan Discussion w patient/family: The assessment and plan as outlined above was discussed with the patient and/or family members who expressed understanding and agreement. All questions were an swered. Thank you for involving us in the care of your patient. Please call with any questions. History of Present Illness History of present illness: Ms. Roque is a 33 year old female All Systems Review: The remainder of the systems were reviewed and are negative Physical Examination Vital Signs, Last 4 Hours Temp Pulse Resp BP Pulse Ox 08/06/18 07:32 97.9 F 86 18 107/69 98 Results 08/06/18 05:34 08/06/18 05:34 Lab Results 08/05/18 08/05/18 08/05/18 16:10 16:10 16:10 WBC 29.2 H Hgb 14.0 Hct 43.6 Plt Count 433 H Sodium 138 Potassium 2.9 L Chloride 106 Carbon Dioxide 21 L BUN 12 Creatinine 0.90 Glucose 81 Calcium 8.5 L Magnesium Troponin I < 0.03 TSH 1.271 08/06/18 08/06/18 05:34 05:34 WBC 31.0 H* Hgb 13.3 Hct 41.7 Plt Count 451 H Sodium 135 L Potassium 3.8 D Chloride 106 Carbon Dioxide 17 L BUN 14 Creatinine 0.83 Glucose 168 H Calcium 8.7 Magnesium 1.7 Troponin I TSH
[2018-08-06] MEDS: Topiramate 25 MG TABLET PO SCH ×3 (11:07→20:40)
[2018-08-06] MEDS: clonazePAM 1 MG TABLET PO SCH ×3 (11:07→20:40)
[2018-08-06] MEDS: Gabapentin 400 MG CAPSULE PO SCH ×3 (11:07→20:40)
[2018-08-06] MEDS: predniSONE 5 MG TABLET PO SCH ×2 (11:24→15:33)
--- NOTE | 2018-08-06 16:43 | Internal Med Progress Note ---
Hospitalist Progress Note - Encounter Date of Encounter: 08/06/18 Time of Encounter: 16:39 - Subjective Interval History: Patient seen and examined at bedside- Currently denies any CP We discussed treatment plan and I answered patient's questions - Exam Vitals: Temp Pulse Resp BP Pulse Ox 98.1 F 90 18 106/72 96 08/06/18 15:28 08/06/18 15:28 08/06/18 15:28 08/06/18 15:28 08/06/18 15:28 Exam: Skin: Free of rash and discoloration. Musculoskeletal: There is mild tenderness at palpation of central anterior chest. Eyes: Sclera is white. There is no discharge from eyes. ENMT: Oral/pharyngeal mucosa is normal in appearance. There is no discharge from nose or ears. Respiratory: Normal breath sounds with no crackles and wheezes bilaterally. CV: Heart is regular with no gallop or murmur. GI: Abdomen is flat and soft with no palpable mass or visceromegaly. : There is no tenderness in patient's flanks bilaterally. Neuro exam: He has good strength in upper and lower extremities. He has normal eye movements. Psychiatric: Appropriate affect - Assessment and Plan (1) Chest pain Current Visit: Yes Status: Acute Assessment and Plan: CP for 4 days - cardiac risk factors - tobacco abuse PCOS and HTN Cardiac workup negative at this time LOOP recorder interrogated in ER - no events Sinus tachycardia- will resume beta carmen Seen by cardiology - recommending stress echo TTE Impressions: LVEF 60%. Normal LV chamber size, wall thickness and function. Normal left ventricular diastolic function. Normal right ventricular structure and function. PFO with right to left shunt. Unable to estimate RVSP due to lack of TR jet. No significant valvular dysfunction. Hx of PFO and mitral valve prolapse (2) Palpitations Current Visit: Yes Status: Acute Assessment and Plan: 1 Loop recorder interrogated no events cont with cardiac monitoring (3) Mood disorder Current Visit: Yes Status: Chronic Assessment and Plan: 1 stable at this time- cont home medications (4) Anxiety Current Visit: Yes Status: Chronic Assessment and Plan: stable cont home medications (5) Fibromyalgia Current Visit: Yes Status: Chronic Assessment and Plan: cont home medications (6) Acute hypokalemia Current Visit: Yes Status: Acute Assessment and Plan: resolved cont to monitor - Time Spent with Patient Total time spent is greater than 50% in coordination of care (as documented) at patient's floor/unit and/or counseling patient: Internal Medicine: Result - Labs CBC & Chem 7: 08/06/18 05:34 08/06/18 05:34 Labs: Short CBC 08/05/18 08/06/18 Range/Units 16:10 05:34 WBC 31.0 H* (4.3-11.1) K/mcL Hgb 13.3 (11.5-15.4) g/dL Hct 41.7 (35.3-44.9) % Plt Count 451 H (140-400) K/mcL Neutrophils # 22.7 H 26.7 H (1.6-8.9) K/mcL BMP 08/05/18 08/06/18 16:10 05:34 Sodium 138 135 L Potassium 2.9 L 3.8 D Chloride 106 106 Carbon Dioxide 21 L 17 L BUN 12 14 Creatinine 0.90 0.83 Glucose 81 168 H Calcium 8.5 L 8.7 Cardiac Enzymes 08/05/18 Range/Units 16:10 Troponin I < 0.03 (< 0.04) ng/mL - Impressions Impressions Echocardiogram 08/06/18 08:00 Impressions: LVEF 60%. Normal LV chamber size, wall thickness and function. Normal left ventricular diastolic function. Normal right ventricular structure and function. PFO with right to left shunt. Unable to estimate RVSP due to lack of TR jet. No significant valvular dysfunction. Left Ventricular Wall Motion: Rest Echo Findings All wall segments showed normal motion. Findings: Study Quality * Technically adequate exam. ECG Findings * Normal sinus rhythm. Left Ventricle * LVEF 60%. * Normal LV chamber size, wall thickness and function. * Normal left ventricular diastolic function. Right Ventricle * Normal right ventricular structure and function. Left Atrium * Normal left atrial size. Right Atrium * Normal right atrial size. Interatrial Septum * PFO with right to left shunt. Aortic Valve * Trileaflet aortic valve. * Normal aortic valve structure. * No aortic regurgitation. * No aortic stenosis. Mitral Valve * Normal mitral valve structure. * No mitral regurgitation. * No mitral stenosis. Tricuspid Valve * No tricuspid regurgitation. * No tricuspid stenosis. * Unable to estimate RVSP due to lack of TR jet. * Normal tricuspid valve structure. Pulmonic Valve * Normal pulmonic valve structure. * No pulmonic regurgitation. Aorta * Normally sized aortic root. Pericardium * The pericardium appears normal. IVC * Normal IVC dimensions and inspiratory collapse. Pulmonary Artery * Normal visualized portions of the main pulmonary artery. - VTE Reasons for not Prescribing Prophylaxis: Treatment not Indicated - Low risk for VTE Deep Vein Thrombosis/Pulmonary Embolism Present on Admission: No Consult Discharge Plan - Plan Referrals: Emi Rajan CNP [Primary Care Provider] - 08/11/18 11:00 am (1) Chest pain Qualifiers: Chest pain type: other chest pain Qualified Code(s): R07.89 - Other chest pain; R07.8 - Other chest pain
[2018-08-06] MEDS ORDERED: predniSONE 10 MG TABLET PO SCH (17:00)
[2018-08-06] MEDS ORDERED: Famotidine 20 MG TABLET PO SCH (21:00)
[2018-08-06] MEDS ORDERED: Isovue-370 500 ML BOTTLE IVP ONE (23:43)
--- NOTE | 2018-08-07 04:25 | Event Note ---
Date of Encounter: 08/06/18 Time of Encounter: 20:20 Alerted by patient's nurse KANNAN Leach that patient was complaining of pain in her left side and a "lump" that she could feel. Pt. was also complaining of nausea. Went to see pt. who was resting in bed. She showed me an area under her left rib cage that was sensitive to palpation. I could not feel a mass d/t pts. complaint of pain w/pressure. Pt. stated she had been having this pain intermittently for several days. She also reported severe GERD w/little relief. IVP Protonix 40 mg twice a day ordered to start now, Tums chews every 4 hours when necessary, and CT of her abdomen and pelvis with contrast was ordered. CT showed atelectasis versus scarring in the lung bases. Liver, pancreas, and spleen unremarkable. Cholecystectomy. No bowel obstruction. Appendix is normal. No bladder stone. No pelvic fluid collection. No adenopathy. 2 simple right ovarian cysts measuring up to 2.82.3 cm. These are almost certainly benign and no further follow-up needed. No abdominal aortic aneurysm. Adrenal glands unremarkable. Kidneys are unremarkable. No acute bony abnorm ality. Discussed finding w/pt. who was clearly relieved. Pt. also informed by nurse that she was meeting sepsis criteria and her lactic acid on 08/06 was 3.0. I assured her we are monitoring the situation carefully. Lactic acid ordered in a.m. labs. Will continue to monitor closely.
[2018-08-07 05:09] LABS: Basophils # 0.1 K/mcL (0.0-0.2); Basophils % 0.4 %; Eosinophils # 0.1 K/mcL (0.0-0.6); Eosinophils % 0.3 %; Immature Granulocytes % 2.6 % (0-4); Lymphocytes # 2.9 K/mcL (0.6-4.6); Lymphocytes % 12.4 %; Mean Corpuscular HGB Conc 31.6 g/dL (31.6-35.5); Mean Platelet Volume 9.4 fL (9.4-12.4); Monocytes # 1.4 K/mcL (0.0-1.3); Neutrophils # 18.4 K/mcL (1.6-8.9); Platelet Count 394 K/mcL (140-400); Red Cell Distribution Width 15.5 % (11.5-14.5); Segmented Neutrophils % 78.3 %
[2018-08-07 05:25] LABS: BUN/Creatinine Ratio 23 (6-26); Blood Urea Nitrogen 14 mg/dL (6-20); Calcium 8.4 mg/dL (8.6-10.3); Carbon Dioxide 22 mEq/L (23-29); Chloride 110 mEq/L (98-107); Glucose 107 mg/dL (70-105); Osmolality,Calculated 287 (280-300); Potassium 4.2 mEq/L (3.5-5.1); Sodium 138 mEq/L (136-145); eGFR For Non-African Americans > 60 (> 60)
[2018-08-07] MEDS: Pantoprazole 40 MG VIAL IVP SCH ×2 (08:25→12:43)
[2018-08-07] MEDS ORDERED: Regadenoson 0.4 MG/5 ML SYRINGE IVP ONE (08:26)
[2018-08-07 08:53] LABS: Troponin I < 0.03 ng/mL (< 0.04)
[2018-08-07] MEDS ORDERED: predniSONE 10 MG TABLET PO SCH (09:00)
[2018-08-07] MEDS ORDERED: Aspirin Enteric Coated 81 MG Tablet PO SCH (09:00)
[2018-08-07 10:25] VITALS: BP 109/70
[2018-08-07] MEDS: Gabapentin 400 MG CAPSULE PO SCH (10:33)
[2018-08-07] MEDS: Topiramate 25 MG TABLET PO SCH (10:33)
[2018-08-07] MEDS: clonazePAM 1 MG TABLET PO SCH (10:33)
--- NOTE | 2018-08-07 12:07 | Cardiology Progress Note ---
Date of Encounter: 08/07/18 Time of Encounter: 12:00 Assessment and Plan (1) Chest pain Current Visit: Yes Status: Acute Patient presents with atypical chest pain symptoms on-going for 4 days. She is now chest pain free. Cardiac risk factors include tobacco abuse, PCOS, and HTN. Prior cardiac work-up: 07/2017- EF normal. Mild MVP with no regurgitation. 04/2018 exercise stress- EKG negative for iscemia. Pt completed 7.0 METs. C/o chest pain during exam. 12/2017 Holter- Rare PAC and PVC, Avg HR 103 bpm. EKG 08/05/18 -SR with no acute ST changes. Troponin negative. Loop recorder checked 08/05/17- No events, one symptoms reported during NSR. TTE this admission shows preserved EF and no significant valvular disease. PFO seen- no indication for intervention. Pharmacologic stress test is negative for ischemia or infarct. Patient undergoing sepsis work-up. Continue out-pt f/u and monitoring. Cardiology will sign off. Qualifiers: Chest pain type: other chest pain Qualified Code(s): R07.89 - Other chest pain; R07.8 - Other chest pain Discussion w patient/family: The assessment and plan as outlined above was discussed with the patient and/or family members who expressed understanding and agreement. All questions were answered. Thank you for involving us in the care of your patient. Please call with any questions. Subjective Principal diagnosis: chest pain Interval history: Ms. Roque seen in the stress lab. Denies chest pain today but c/o extreme fatigue. She tolerated stress test well. Objective Vital Signs, Last 4 Hours Temp Pulse Resp BP Pulse Ox 08/07/18 10:30 97 08/07/18 10:25 97.9 F 91 16 109/70 97 General: Conversant, No Apparent Distress, Other (appears drowsy) HEENT: Atraumatic, Normocephaly, Mucus Membranes Moist Neck: No JVD, Normal carotid pulses Cardiac: Reg Rate and Rhythm, Normal S1 and S2, No Murmur Lungs: Normal Breath Sounds, No Wheeze, Rales, Rhonchi Neuro: Alert and responsive, No focal deficits noted Abdomen: Soft, Non-Tender Skin: No rashes noted on visualized skin Musculoskeletal: No Chest Wall Tenderness Extremities: No Clubbing, No Cyanosis, No Edema, Normal Pulses Results 08/07/18 04:39 08/07/18 04:39 Lab Results 08/07/18 08/07/18 04:39 04:39 WBC 23.5 H Hgb 12.0 Hct 38.0 Plt Count 394 Sodium 138 Potassium 4.2 Chloride 110 H Carbon Dioxide 22 L BUN 14 Creatinine 0.61 Glucose 107 H Calcium 8.4 L Troponin I < 0.03 - Imaging and Cardiology Stress Test: report reviewed Echo: report reviewed - EKG Interpretation EKG results cardiology: personally reviewed - VTE Reasons for not Prescribing Prophylaxis: Treatment not Indicated - Low risk for VTE Deep Vein Thrombosis/Pulmonary Embolism Present on Admission: No Consult Discharge Plan - Plan Referrals: Emi Rajan CNP [Primary Care Provider] - 08/11/18 11:00 am
--- NOTE | 2018-08-07 14:55 | Discharge Summary ---
- NOTES TO OUTPATIENT PROVIDER Notes to Outpatient Provider: Presenting with chest pain was seen by cardiology and underwent stress echo and loop recorder was interrogated with no events-had hypokalemia monitor chemistry as outpatient Orders not resulted at time of discharge: Pending orders 08/06/18 06:40 Culture,Blood [BC] Stat 08/07/18 08:41 NM louie perf SPECT multi [NM] Routine 08/08/18 04:00 Lactic Acid AM 0400 Date of Encounter: 08/07/18 Time of Encounter: 14:48 - Discharge Diagnosis (1) Chest pain Priority: Primary Status: Acute Qualifiers: Chest pain type: other chest pain Qualified Code(s): R07.89 - Other chest pain; R07.8 - Other chest pain (2) Palpitations Priority: Secondary Status: Acute (3) Mood disorder Priority: Secondary Status: Chronic (4) Anxiety Priority: Secondary Status: Chronic (5) Fibromyalgia Priority: Secondary Status: Chronic (6) Acute hypokalemia Priority: Secondary Status: Acute Hospital course: Ms. Roque is a 33 year old female past medical history for Hodgeman's disease mild MVP without regurgitation PFO, loop recorder palpitations seizures polycystic ovarian disease and tobacco abuse. Presented to [facility] ED after experiencing severe fatigue and constant chest aching for approximately 4 days chest pain increased after becoming upset. Cardiology was consulted and loop recorder was interrogated with no new events troponins were negative EKG with no acute ST changes. She underwent an stress echo which was negative. Advised follow-up with cardiology as outpatient. During admission patient was given steroid burst white count did elevate to 33 however she was placed back on her home steroid and white count returned to baseline. She also had some hypokalemia she was given replacement and potassium returned to baseline. Currently denies any chest pain or discomfort she does have some fatigue however she has been ambulating in her room performing ADLs without any difficulty t olerating oral intake. Advised patient to continue home medications and to follow-up with primary care provider and cardiology since these providers know her best and can adjust medications accordingly. Patient verbalized understanding she is hemodynamically stable and ready for discharge - Time Spent with Patient Total time spent providing and/or coordinating discharge services: - Discharge Medications Home Medications: Gabapentin [Neurontin] 800 mg PO TID 12/22/17 [History] Ibuprofen 800 mg PO TID PRN 12/22/17 [History] Minocycline [Minocin] 50 mg PO DAILY 12/22/17 [History] Topiramate [Topamax] 25 mg PO TID 12/22/17 [History] Triamterene/HCTZ 37.5/25mg [Dyazide] 1 tab PO QAM 12/22/17 [History] Zolpidem [Ambien] 10 mg PO HS 12/22/17 [History] clonazePAM [Klonopin] 1 mg PO TID 12/22/17 [History] predniSONE [PredniSONE] 15 mg PO 0900 12/22/17 [History] raNITIdine HCl [Ranitidine HCl] 300 mg PO HS 12/22/17 [History] Aspirin [Lo-Dose Aspirin EC] 81 mg PO DAILY 07/23/18 [History] Cyclobenzaprine [Flexeril] 10 mg PO TID PRN 07/23/18 [History] Hydrocodone/Acetaminophen [[place] 10-325 Tablet] 1 tab PO Q6H PRN 07/23/18 [History] Hydrocortisone Sodium Succ [Solu-Cortef] 1 vial IN DAILY PRN 07/23/18 [History] Metoprolol Succinate [Toprol Xl] 25 mg PO QPM 07/23/18 [History] Metoprolol Succinate [Toprol Xl] 50 mg PO QAM 07/23/18 [History] Nystatin [Nystatin Suspension] 5 ml PO QID PRN 07/23/18 [History] Omeprazole [PriLOSEC] 40 mg PO QAM 07/23/18 [History] Ibuprofen [Motrin] 800 mg PO Q8HR PRN 08/05/18 [History] Nystatin [Nystatin Suspension] 100,000 units PO QID PRN 08/05/18 [History] predniSONE [PredniSONE] 10 mg PO 1700 08/05/18 [History] Allergies/Adverse Reactions: Allergy/AdvReac Type Severity Reaction Status Date / Time guaifenesin [From Capmist DM] Allergy Intermediate Seizure Verified 08/06/18 00:17 dextromethorphan Allergy Seizure Verified 12/22/17 16:01 [From Capmist DM] latex Allergy Rash Verified 12/22/17 16:01 morphine Allergy Hives Verified 12/22/17 16:01 pseudoephedrine Allergy Seizure Verified 12/22/17 16:01 [From Capmist DM] tramadol AdvReac Seizure Verified 08/06/18 00:17 magnesium sulfate Allergy Palpitation Uncoded 12/22/17 16:01 s Date of admission: 08/05/18 18:40 Primary care physician: Emi Rajan CNP Consults: 08/05/18 19:04 Consult to Cardiology [CONS] Routine Comment: Consulting Provider: Cardiology Shabnam Reason for Consult: CHEST PAIN/PALPITATIONS Time Notified: 18:00 Call Completed: Yes Discharging clinician: Imain Blanco Anticipated date of discharge: 08/07/18 - Constitutional Vitals: Temp Pulse Resp BP Pulse Ox 97.9 F 91 16 109/70 97 08/07/18 10:25 08/07/18 10:25 08/07/18 10:25 08/07/18 10:25 08/07/18 10:30 General appearance: Present: cooperative, A&O X 3, answers questions appropriately Exam: Skin: Free of rash and discoloration. Musculoskeletal: There is mild tenderness at palpation of central anterior chest. Eyes: Sclera is white. There is no discharge from eyes. ENMT: Oral/pharyngeal mucosa is normal in appearance. There is no discharge from nose or ears. Respiratory: Normal breath sounds with no crackles and wheezes bilaterally. CV: Heart is regular with no gallop or murmur. GI: Abdomen is flat and soft with no palpable mass or visceromegaly. : There is no tenderness in patient's flanks bilaterally. Neuro exam: He has good strength in upper and lower extremities. He has normal eye movements. Psychiatric: Appropriate affect - Patient Status Disposition: Home, Self-Care Condition: Good Functional capacity at discharge: independent ambulation Overall status at discharge: patient is back to baseline - Discharge Instructions Follow Up With: Emi Rajan CNP [Primary Care Provider] - 08/11/18 11:00 am - Diet and Activity Activity: resume usual activities as tolerated Diet: advance to your usual diet - VTE Reasons for not Prescribing Prophylaxis: Treatment not Indicated - Low risk for VTE Deep Vein Thrombosis/Pulmonary Embolism Present on Admission: No
== END 2018-08-07 15:27 | disposition home or self-care (01) ==
LOC: 3BNU 15:27 → EMEROOARM 15:27 → 3BNU 20:00
PROVIDERS: ADMIT Hospitalist; ATTEND Hospitalist

== ENCOUNTER 2021-09-21 14:03 | Observation (INO) ==
[2021-09-21] MEDS ORDERED: Naloxone 0.4 MG/ML INJ IVP PRN (18:57)
[2021-09-21] MEDS ORDERED: 0.9 % Sodium Chloride 1,000 ML IVC SCH (19:00)
[2021-09-21] MEDS ORDERED: Vancomycin 1,500 MG/265 ML IV.SOLN IVPB ONE (20:11)
[2021-09-21] MEDS ORDERED: Acetaminophen 325 MG TABLET PO PRN (20:55)
[2021-09-21] MEDS ORDERED: Gabapentin 400 MG CAPSULE PO PRN (21:04)
[2021-09-21] MEDS ORDERED: Ondansetron ODT 4 MG TAB.RAPDIS SL PRN (21:25)
[2021-09-21] MEDS: clonazePAM 1 MG TABLET PO SCH (21:56)
[2021-09-21] MEDS: Topiramate 25 MG TABLET PO SCH (21:56)
[2021-09-21 22:27] LABS: Basophils # 0.1 K/mcL (0.0-0.2); Basophils % 0.4 %; Eosinophils # 0.1 K/mcL (0.0-0.6); Eosinophils % 0.6 %; Hematocrit 42.1 % (35.3-44.9); Hemoglobin 13.9 g/dL (11.5-15.4); Immature Granulocytes % 0.4 % (0-4); Lymphocytes # 4.6 K/mcL (0.6-4.6); Lymphocytes % 25.7 %; Mean Corpuscular Hemoglobin 29.7 pg (28.0-33.3); Mean Platelet Volume 9.9 fL (9.4-12.4); Monocytes % 5.8 %; Neutrophils # 11.9 K/mcL (1.6-8.9); Platelet Count 407 K/mcL (140-400); Red Blood Count 4.68 M/mcL (3.82-4.97); Red Cell Distribution Width 14.5 % (11.5-14.5); Segmented Neutrophils % 67.1 %; White Blood Count 17.7 K/mcL (4.3-11.1)
[2021-09-21 22:48] LABS: Alanine Aminotransferase 7 Units/L (7-52); Albumin 3.6 g/dL (3.5-5.7); Albumin/Globulin Ratio 1.4 (1.1-2.2); Alkaline Phosphatase 62 Units/L (34-104); Aspartate Amino Transferase 11 Units/L (13-39); BUN/Creatinine Ratio 15 (6-26); Bilirubin,Total 0.5 mg/dL (0.3-1.0); Blood Urea Nitrogen 11 mg/dL (6-20); Calcium 8.4 mg/dL (8.6-10.3); Carbon Dioxide 24 mEq/L (23-29); Chloride 104 mEq/L (98-107); Globulin 2.6 g/dL (2.4-3.5); Glucose 86 mg/dL (70-105); Osmolality,Calculated 281 (280-300); Potassium 2.7 mEq/L (3.5-5.1); Sodium 136 mEq/L (136-145); Total Protein 6.2 g/dL (6.4-8.9); eGFR For African Americans > 60 (> 60); eGFR For Non-African Americans > 60 (> 60)
[2021-09-21 22:52] LABS: Large Platelets Present (Not Present); Reactive Lymphocytes Present (Not Present)
[2021-09-21] MEDS: Cefepime HCl 2,000 MG in 0.9 % Sodium Chloride 20 ML IVP SCH (23:19)
[2021-09-21] MEDS: Hydrocortisone Sodium Succ 100 MG/2 ML VIAL IVP SCH (23:55)
[2021-09-22] MEDS ORDERED: Nicotine 2 MG GUM BC PRN (00:09)
[2021-09-22 00:49] LABS: Influenza A PCR Negative (Negative); Influenza B PCR Negative (Negative); Resp. Syncytial Virus PCR Negative (Negative)
[2021-09-22 00:51] LABS: SARS-CoV-2 by PCR (In House) Negative (Negative)
[2021-09-22] MEDS: Hydrocortisone Sodium Succ 100 MG/2 ML VIAL IVP SCH ×4 (04:33→21:24)
[2021-09-22 06:37] LABS: Basophils # 0.1 K/mcL (0.0-0.2); Basophils % 0.3 %; Eosinophils % 0.1 %; Hemoglobin 13.3 g/dL (11.5-15.4); Immature Granulocytes % 0.5 % (0-4); Lymphocytes # 1.7 K/mcL (0.6-4.6); Mean Corpuscular HGB Conc 31.7 g/dL (31.6-35.5); Mean Corpuscular Hemoglobin 29.2 pg (28.0-33.3); Mean Corpuscular Volume 92.1 fL (83.0-100.0); Mean Platelet Volume 9.9 fL (9.4-12.4); Monocytes # 0.5 K/mcL (0.0-1.3); Monocytes % 2.6 %; Neutrophils # 16.4 K/mcL (1.6-8.9); Platelet Count 363 K/mcL (140-400); Red Blood Count 4.56 M/mcL (3.82-4.97); Red Cell Distribution Width 14.5 % (11.5-14.5); Segmented Neutrophils % 87.5 %; White Blood Count 18.7 K/mcL (4.3-11.1)
[2021-09-22 07:02] LABS: BUN/Creatinine Ratio 13 (6-26); Blood Urea Nitrogen 11 mg/dL (6-20); Calcium 8.2 mg/dL (8.6-10.3); Carbon Dioxide 26 mEq/L (23-29); Chloride 109 mEq/L (98-107); Cholesterol 166 mg/dL (< 200); Glucose 109 mg/dL (70-105); HDL Cholesterol 41 mg/dL (40-59); LDL Cholesterol,Calculated 102 mg/dL (< 100); Magnesium 1.8 mg/dL (1.6-2.6); Osmolality,Calculated 290 (280-300); Potassium 3.6 mEq/L (3.5-5.1); Sodium 140 mEq/L (136-145); Triglycerides 116 mg/dL (< 150); eGFR For African Americans > 60 (> 60); eGFR For Non-African Americans > 60 (> 60)
[2021-09-22] MEDS: FLUoxetine 20 MG CAPSULE PO SCH (07:48)
[2021-09-22] MEDS: Topiramate 25 MG TABLET PO SCH ×3 (07:48→20:12)
[2021-09-22] MEDS: ARIPiprazole 10 MG TABLET PO SCH (07:49)
[2021-09-22] MEDS: clonazePAM 1 MG TABLET PO SCH ×3 (07:49→20:12)
[2021-09-22] MEDS: Vancomycin 1,250 MG/262.5 ML IV.SOLN IVPB SCH ×2 (09:20→21:24)
[2021-09-22] MEDS: Cefepime HCl 2,000 MG in 0.9 % Sodium Chloride 20 ML IVP SCH ×2 (11:09→21:09)
[2021-09-22] MEDS: Ketorolac 30 MG/ML VIAL IVP PRN ×2 (14:33→23:16)
[2021-09-22] MEDS: 0.9 % Sodium Chloride 1,000 ML IVC SCH ×2 (15:10→21:19)
[2021-09-22] MEDS ORDERED: 0.9 % Sodium Chloride 1,000 ML IV ONE (16:16)
[2021-09-22] MEDS ORDERED: D5% in Water 1,000 ML IVC PRN (23:19)
[2021-09-22] MEDS ORDERED: *HR* Dextrose 50 % in Water (Syg) 50 ML SYRINGE IVP PRN (23:19)
[2021-09-22] MEDS ORDERED: Dextrose 4 GM Chewable Tablets PO PRN ×2 (23:19)
[2021-09-22 23:36] LABS: Bilirubin,Urine Negative (Negative); Blood,Urine Negative (Negative); Clarity,Urine Clear (Clear); Color,Urine Light-Yellow (Yellow); Glucose,Urine (UA) Normal (Normal); Ketones,Urine Negative (Negative); Leukocyte Esterase,Urine Negative (Negative); Nitrite,Urine Negative (Negative); PH,Urine 6.5 pH Units (5.0-8.0); Protein,Urine Trace mg/dL (Neg-Trace); Specific Gravity,Urine 1.019 (1.010-1.025); Urobilinogen,Urine Normal (Normal)
[2021-09-23] MEDS: Insulin LISPRO 300 UNITS/3 ML VIAL SUBQ SCH ×5 (01:19→21:38)
[2021-09-23] MEDS: Hydrocortisone Sodium Succ 100 MG/2 ML VIAL IVP SCH ×4 (04:16→22:59)
[2021-09-23] MEDS: Ketorolac 30 MG/ML VIAL IVP PRN ×2 (05:25→14:20)
[2021-09-23] MEDS: Topiramate 25 MG TABLET PO SCH ×3 (07:40→20:55)
[2021-09-23] MEDS: clonazePAM 1 MG TABLET PO SCH ×3 (07:40→20:56)
[2021-09-23] MEDS: FLUoxetine 20 MG CAPSULE PO SCH (07:40)
[2021-09-23] MEDS: ARIPiprazole 10 MG TABLET PO SCH (07:40)
[2021-09-23] MEDS: Cefepime HCl 2,000 MG in 0.9 % Sodium Chloride 20 ML IVP SCH ×2 (07:40→20:25)
[2021-09-23] MEDS: Vancomycin 1,250 MG/262.5 ML IV.SOLN IVPB SCH ×2 (07:41→20:27)
[2021-09-23 07:54] LABS: Basophils % 0.2 %; Eosinophils % 0.1 %; Hematocrit 42.4 % (35.3-44.9); Hemoglobin 13.3 g/dL (11.5-15.4); Immature Granulocytes % 0.4 % (0-4); Lymphocytes # 1.6 K/mcL (0.6-4.6); Lymphocytes % 9.6 %; Mean Corpuscular HGB Conc 31.4 g/dL (31.6-35.5); Mean Corpuscular Hemoglobin 29.4 pg (28.0-33.3); Mean Corpuscular Volume 93.8 fL (83.0-100.0); Mean Platelet Volume 9.7 fL (9.4-12.4); Monocytes # 0.5 K/mcL (0.0-1.3); Monocytes % 2.7 %; Neutrophils # 14.3 K/mcL (1.6-8.9); Platelet Count 330 K/mcL (140-400); Red Blood Count 4.52 M/mcL (3.82-4.97); Red Cell Distribution Width 14.7 % (11.5-14.5); White Blood Count 16.5 K/mcL (4.3-11.1)
[2021-09-23 08:14] LABS: BUN/Creatinine Ratio 20 (6-26); Blood Urea Nitrogen 17 mg/dL (6-20); Calcium 8.3 mg/dL (8.6-10.3); Carbon Dioxide 22 mEq/L (23-29); Chloride 111 mEq/L (98-107); Glucose 111 mg/dL (70-105); Osmolality,Calculated 292 (280-300); Potassium 3.3 mEq/L (3.5-5.1); Sodium 140 mEq/L (136-145); eGFR For African Americans > 60 (> 60); eGFR For Non-African Americans > 60 (> 60)
[2021-09-23 08:27] LABS: Thyroid Stimulating Hormone 0.166 mcIU/mL (0.340-5.600)
[2021-09-23] MEDS ORDERED: Isovue-370 500 ML BOTTLE IVP ONE (10:43)
[2021-09-23] MEDS ORDERED: Ringers Solution, Lactated 1,000 ML IVC SCH (10:45)
[2021-09-23 11:55] LABS: Triiodothyronine (T3) Free 2.41 pg/mL (2.50-3.90)
[2021-09-23] MEDS: Lactobacillus 1 EACH CAP.SPRINK PO SCH ×2 (12:11→20:55)
[2021-09-23] MEDS: *HR* Enoxaparin 40 MG/0.4 ML SYRINGE SQ SCH (12:11)
[2021-09-23 14:59] LABS: Prolactin 3.45 ng/mL (3.80-23.20)
[2021-09-23 15:22] LABS: Follicle Stimulating Hormone 131.17 mIU/mL
[2021-09-23 15:23] LABS: Luteinizing Hormone 73.05 mIU/mL
[2021-09-24] MEDS: Ketorolac 30 MG/ML VIAL IVP PRN (03:39)
[2021-09-24] MEDS: Hydrocortisone Sodium Succ 100 MG/2 ML VIAL IVP SCH (03:39)
[2021-09-24] MEDS ORDERED: 0.9 % Sodium Chloride 1,000 ML IV ONE (04:38)
[2021-09-24] MEDS: *HR* Enoxaparin 40 MG/0.4 ML SYRINGE SQ SCH (04:49)
[2021-09-24 05:46] LABS: Basophils % 0.2 %; Eosinophils % 0.1 %; Hematocrit 37.7 % (35.3-44.9); Immature Granulocytes % 0.3 % (0-4); Lymphocytes # 2.3 K/mcL (0.6-4.6); Lymphocytes % 15.3 %; Mean Corpuscular HGB Conc 30.8 g/dL (31.6-35.5); Mean Corpuscular Hemoglobin 29.4 pg (28.0-33.3); Mean Corpuscular Volume 95.4 fL (83.0-100.0); Mean Platelet Volume 10.6 fL (9.4-12.4); Monocytes # 0.6 K/mcL (0.0-1.3); Monocytes % 4.1 %; Platelet Count 337 K/mcL (140-400); Red Blood Count 3.95 M/mcL (3.82-4.97); Red Cell Distribution Width 14.6 % (11.5-14.5); White Blood Count 14.9 K/mcL (4.3-11.1)
[2021-09-24 05:52] LABS: Hemoglobin 11.6 g/dL (11.5-15.4)
[2021-09-24 06:03] LABS: BUN/Creatinine Ratio 25 (6-26); Blood Urea Nitrogen 20 mg/dL (6-20); Calcium 8.1 mg/dL (8.6-10.3); Carbon Dioxide 26 mEq/L (23-29); Chloride 113 mEq/L (98-107); Glucose 94 mg/dL (70-105); Osmolality,Calculated 300 (280-300); Potassium 3.7 mEq/L (3.5-5.1); Sodium 144 mEq/L (136-145); eGFR For African Americans > 60 (> 60); eGFR For Non-African Americans > 60 (> 60)
[2021-09-24] MEDS ORDERED: Ringers Solution, Lactated 1,000 ML IVC SCH (07:00)
[2021-09-24 07:28] VITALS: TEMP 98.3; O2SAT 94
[2021-09-24] MEDS: Cefepime HCl 2,000 MG in 0.9 % Sodium Chloride 20 ML IVP SCH (07:54)
[2021-09-24] MEDS: ARIPiprazole 10 MG TABLET PO SCH (07:56)
[2021-09-24] MEDS: clonazePAM 1 MG TABLET PO SCH (07:56)
[2021-09-24] MEDS: FLUoxetine 20 MG CAPSULE PO SCH (07:57)
[2021-09-24] MEDS: Lactobacillus 1 EACH CAP.SPRINK PO SCH (07:57)
[2021-09-24] MEDS: Topiramate 25 MG TABLET PO SCH (07:57)
[2021-09-24] MEDS ORDERED: Hydrocortisone Sodium Succ 100 MG/2 ML VIAL IVP SCH (08:00)
[2021-09-24] MEDS: Vancomycin 1,250 MG/262.5 ML IV.SOLN IVPB SCH (08:39)
[2021-09-24] MEDS: Insulin LISPRO 300 UNITS/3 ML VIAL SUBQ SCH (09:50)
[2021-09-24 10:42] VITALS: BP 109/69; PULSE 63
[2021-09-25] MEDS ORDERED: Levothyroxine 25 MCG TABLET PO SCH (06:30)
== END 2021-09-24 11:47 | disposition home or self-care (01) ==
LOC: 3ANU → SUATTDRO 18:14
PROVIDERS: ADMIT Internal Medicine; ATTEND Internal Medicine